=== PATIENT | female | born 1945 | race Caucasian/White ===

== ENCOUNTER 2016-08-03 10:42 | Outpatient (CLI) | payer MEDICARE | END 2016-08-03 10:43 | disposition home or self-care (01) | DX: Z12.31 Encounter for screening mammogram for malignant neoplasm of breast (principal) ==

== ENCOUNTER 2017-01-23 16:17 | Emergency (ER) | payer MEDICARE ==
[2017-01-23] MEDS ORDERED: SODIUM CHLORIDE 0.9% 1,000 ML IV ONE (16:24)
[2017-01-23] MEDS ORDERED: BUFFERED LIDOCAINE 10 ML SYRINGE SUBQ STA (16:25)
[2017-01-23] MEDS ORDERED: TETANUS/DIPHTHERIA/PERTUSSIS 0.5 ML SYRINGE IM ONE ×2 (16:25→16:57)
[2017-01-23] MEDS ORDERED: LORazepam 2 MG/ML SYRINGE IVP STA (16:25)
--- NOTE | 2017-01-23 16:27 | ED Physician Documentation ---
PD HPI SYNCOPE - Stated complaint Stated Complaint: GLF - History obtained from History obtained from: Patient, EMS - History of Present Illness Timing - onset: Other (She had a trip and fall in the garden, she has a couple lacerations on her anterior right leg from where she hit a fence. She went inside and it was bleeding quite profusely. She was sitting there and looking at the wound and paramedics had arrived and that she had a syncopal episode without injury this time. She now feels a little panicky with some tingling of the fingertips.) Review of Systems Constitutional: denies: Fever, Chills, Fatigue Cardiac: denies: Chest pain / pressure, Palpitations Respiratory: denies: Dyspnea, Cough Skin: denies: Rash, Lesions Musculoskeletal: denies: Neck pain, Back pain PD PAST MEDICAL HISTORY - Past Medical History Past Medical History: No - Present Medications Home Medications: Ambulatory Orders Medication Instructions Recorded Confirmed traMADol [Ultram] 50 mg PO Q4-6H PRN #7 tablet 01/23/17 - Allergies Allergies/Adverse Reactions: Allergies Allergy/AdvReac Type Severity Reaction Status Date / Time acetaminophen [From Percocet] AdvReac Nausea Verified 01/23/17 16:32 oxycodone [From Percocet] AdvReac Nausea Verified 01/23/17 16:32 - Family History Family history: reports: Non contributory PD ED PE NORMAL - Vitals Vital signs reviewed: Yes - General General: Alert and oriented X 3, Other (A little panicky and hyperventilating) - HEENT HEENT: PERRL, EOMI - Neck Neck: Supple, no meningeal sign, No bony TTP - Cardiac Cardiac: RRR, No murmur - Respiratory Respiratory: No respiratory distress, Clear bilaterally - Abdomen Abdomen: Soft, Non tender - Derm Derm: Normal color, Warm and dry - Extremities Extremities: Other (Scrapes on the anterior right tib-fib with 2 lacerations, the upper one measuring a centimeter the lower one measuring 2 cm.) - Neuro Neuro: Alert and oriented X 3, Normal speech - Psych Psych: Normal mood, Normal affect Results - Vitals Vitals: Vital Signs - 24 hr 01/23/17 01/23/17 01/23/17 16:22 16:34 17:17 Temperature 35.7 C L Heart Rate 77 85 Respiratory 16 15 Rate Blood Pressure 107/53 L 136/65 H Blood Pressure 111/58 L [Left] Blood Pressure 107/53 L [Right] O2 Saturation 100 100 Oxygen O2 Source Room air - EKG (time done) 1641 Rate: Rate (enter#) (72) Rhythm: NSR Intervals: Prolonged GA QRS: Normal Ischemia: Normal ST segments Computer interpretation: Agree with computer - Labs Labs: Laboratory Tests 01/23/17 01/23/17 16:47 16:47 WBC 10.4 RBC 3.72 L Hgb 11.7 L Hct 34.1 L MCV 91.8 MCH 31.5 H MCHC 34.3 RDW 12.9 Plt Count 419 MPV 7.5 L Neut # 4.7 Lymph # 4.7 H Stephens # 0.7 Eos # 0.2 Baso # 0.0 Absolute Nucleated RBC 0.00 Nucleated RBC % 0.0 Sodium 136 Potassium 3.0 L Chloride 103 Carbon Dioxide 20 L Anion Gap 13.0 BUN 16 Creatinine 0.6 Estimated GFR (MDRD) 99 Glucose 136 H Calcium 9.1 Total Bilirubin 0.4 AST 38 ALT 33 Alkaline Phosphatase 43 Total Protein 8.7 H Albumin 3.9 Globulin 4.8 H Albumin/Globulin Ratio 0.8 L Lipase 44 Procedures - Laceration (location) R paris Length in cm: 3 Wound type: Into subcut fat, Other (1x2 cm lac and 1x1 cm lac). No: Into muscle Tendon involvement: Tendon intact Anesthesia: Lidocaine 1%, With bicarb Wound Preparation: Betadine, Irrigated copiously NS Skin layer closure: Nylon, Interrupted, Size #-0 - enter number (3-0), Sutures - enter # (5) Other: Tetanus booster given Complexity: Simple PD MEDICAL DECISION MAKING - ED course ED course: She had a mechanical fall injuring her leg and then what sounds like vasovagal syncope from looking at the blood. She is very mildly anemic here of unknown chronicity and also hypokalemic which was repleted orally. Given a copy of her labs to follow-up with her doctor. Departure - Departure Disposition: 01 Home, Self Care Clinical Impression: Vasovagal syncope, Hypokalemia Leg laceration Qualifiers: Encounter type: initial encounter Laterality: right Qualified Code(s): S81.811A - Laceration without foreign body, right lower leg, initial encounter Anemia Qualifiers: Anemia type: unspecified type Qualified Code(s): D64.9 - Anemia, unspecified Condition: Good Record reviewed to determine appropriate education?: Yes Instructions: ED Syncope Vasovagal Prescriptions: traMADol [Ultram] 50 mg PO Q4-6H PRN #7 tablet PRN Reason: Pain Comments: Follow-up with PA on for recheck of your anemia and low potassium, also suture removal in 3 weeks. Return for any signs of infection which would include redness, swelling, drainage, increased pain. Your blood pressure was elevated today on check into the emergency department. This does not mean that you have hypertension, it is a common phenomenon to come to the emergency department and have elevated blood pressure. I recommend that you see your primary care physician within the week to have it rechecked when you are feeling better.
[2017-01-23] MEDS ORDERED: BUFFERED LIDOCAINE 10 ML SYRINGE ONE (16:47)
[2017-01-23] MEDS ORDERED: LORazepam 2 MG/ML SYRINGE ONE (16:48)
[2017-01-23 16:55] LABS: BASOPHILS % (AUTO) 0.5 %; EOSINOPHILS # (AUTO) 0.2 10^3/uL (0.0-0.7); EOSINOPHILS % (AUTO) 2.1 %; HCT - HEMATOCRIT 34.1 % (37.0-47.0); HGB - HEMOGLOBIN 11.7 g/dL (12.0-16.0); LYMPHOCYTES # (AUTO) 4.7 10^3/uL (1.5-3.5); MEAN CORPUSCULAR HEMOGLOBIN 31.5 pg (27.0-31.0); MEAN CORPUSCULAR HGB CONC 34.3 g/dL (32.0-36.0); MEAN CORPUSCULAR VOLUME 91.8 fL (81.0-99.0); MEAN PLATELET VOLUME 7.5 fL (7.9-10.8); MONOCYTES # (AUTO) 0.7 10^3/uL (0.0-1.0); NEUTROPHILS # (AUTO) 4.7 10^3/uL (1.5-6.6); NEUTROPHILS % (AUTO) 45.4 %; RED BLOOD COUNT 3.72 10^6/uL (4.20-5.40); RED CELL DISTRIBUTION WIDTH 12.9 % (12.0-15.0); UNCORRECTED WHITE BLOOD COUNT 10.4 x10^3/uL; WHITE BLOOD COUNT 10.4 x10^3/uL (4.8-10.8)
[2017-01-23 17:08] LABS: ALBUMIN/GLOBULIN RATIO 0.8 (1.0-2.2); BILIRUBIN,TOTAL 0.4 mg/dL (0.2-1.0); CALCIUM 9.1 mg/dL (8.5-10.3); CREATININE 0.6 mg/dL (0.4-1.0); TOTAL PROTEIN 8.7 g/dL (6.7-8.2)
[2017-01-23] MEDS ORDERED: POTASSIUM CHLORIDE 20 MEQ TABLET PO STA (17:51)
--- NOTE | 2017-01-23 17:58 | XRAY Preliminary Report ---
Exam: XR TIB/FIB RT IMPRESSION: Normal tibia/fibula radiography. [facility] SITE ID: [id number]
--- NOTE | 2017-01-23 18:00 | XRAY Report ---
EXAM: RIGHT TIBIA/FIBULA RADIOGRAPHY EXAM DATE: 01/23/2017 05:42 PM. CLINICAL HISTORY: Fall. Leg injury. Pain. COMPARISON: None. TECHNIQUE: 2 views. FINDINGS: Bones: Normal. No fracture or bone lesion. Joints: The visualized knee and ankle joints are normal. No effusions. Soft Tissues: Normal. No soft tissue swelling. IMPRESSION: Normal tibia/fibula radiography. [facility] Referring Provider Line: [phone] SITE ID: [id number]
[2017-01-23] MEDS ORDERED: POTASSIUM CHLORIDE 20 MEQ TABLET PO ONE (18:03)
[2017-01-23 18:20] VITALS: BP 129/63
== END 2017-01-23 18:18 | disposition home or self-care (01) ==
LOC: ED 16:17 → EDUNIT# 16:17 → ED 18:18
DX: S81.811A Laceration without foreign body, right lower leg, initial encounter (principal); W01.0XXA Fall on same level from slipping, tripping and stumbling without subsequent striking against object, initial encounter; W22.09XA Striking against other stationary object, initial encounter; Y93.H2 Activity, gardening and landscaping; R55 Syncope and collapse; E87.6 Hypokalemia; R03.0 Elevated blood-pressure reading, without diagnosis of hypertension; R94.31 Abnormal electrocardiogram [ECG] [EKG]; Z23 Encounter for immunization
CPT/HCPCS: 12002; 36415; 73590; 80053; 83690; 85025; 90471; 90715; 93005; 96361; 96374; 99283; 99284; A9270; J2060

== ENCOUNTER 2017-02-15 15:00 | Outpatient (CLI) | payer MEDICARE, OTHER ==
[2017-02-15 19:05] LABS: BASOPHILS % (AUTO) 0.5 %; EOSINOPHILS # (AUTO) 0.2 10^3/uL (0.0-0.7); HCT - HEMATOCRIT 38.6 % (37.0-47.0); HGB - HEMOGLOBIN 12.6 g/dL (12.0-16.0); LYMPHOCYTES # (AUTO) 3.6 10^3/uL (1.5-3.5); LYMPHOCYTES % (AUTO) 42.1 %; MEAN CORPUSCULAR HEMOGLOBIN 31.2 pg (27.0-31.0); MEAN CORPUSCULAR HGB CONC 32.5 g/dL (32.0-36.0); MEAN CORPUSCULAR VOLUME 95.9 fL (81.0-99.0); MONOCYTES # (AUTO) 0.6 10^3/uL (0.0-1.0); MONOCYTES % (AUTO) 6.9 %; NEUTROPHILS # (AUTO) 4.1 10^3/uL (1.5-6.6); NEUTROPHILS % (AUTO) 48.5 %; RED BLOOD COUNT 4.03 10^6/uL (4.20-5.40); RED CELL DISTRIBUTION WIDTH 12.9 % (12.0-15.0); UNCORRECTED WHITE BLOOD COUNT 8.5 x10^3/uL; WHITE BLOOD COUNT 8.5 x10^3/uL (4.8-10.8)
[2017-02-15 19:43] LABS: CALCIUM 9.5 mg/dL (8.5-10.3); CREATININE 0.5 mg/dL (0.4-1.0); POTASSIUM 3.7 mmol/L (3.5-5.0)
== END 2017-02-15 15:01 | disposition home or self-care (01) ==
LOC: LAB.WCP 15:00
PROVIDERS: ATTEND Physician Assistant Medical
DX: E87.6 Hypokalemia (principal); T14.8XXA Other injury of unspecified body region, initial encounter
CPT/HCPCS: 36415; 80048; 85025

== ENCOUNTER 2017-04-01 13:54 | Outpatient (CLI) | payer MEDICARE, OTHER | END 2017-04-01 13:55 | disposition home or self-care (01) | LOC: LAB.R 13:54 | PROVIDERS: ATTEND Obstetrics & Gynecology | DX: N89.8 Other specified noninflammatory disorders of vagina (principal) | CPT/HCPCS: 87480; 87510; 87660 ==

== ENCOUNTER 2017-05-17 12:17 | Emergency (ER) | payer MEDICARE, OTHER ==
[2017-05-17 13:48] VITALS: BP 128/71
--- NOTE | 2017-05-17 14:06 | ED Physician Documentation ---
History of Present Illness - Stated complaint Stated Complaint: RASH ON BACK - Chief complaint Chief Complaint: Wound - Additonal information Additional information: hx from pt stinging itchy rash to back for few days Review of Systems Constitutional: denies: Fever Respiratory: denies: Cough GI: denies: Vomiting Skin: reports: Rash PD PAST MEDICAL HISTORY - Past Medical History Past Medical History: No - Past Surgical History Past Surgical History: Yes Ortho: Carpal Tunnel surgery, Other - Present Medications Home Medications: Ambulatory Orders Medication Instructions Recorded Confirmed Aspirin Chewable [St Tr 05/17/17 Aspirin] Lidocaine 1 applic TP Q8H PRN #30 cream..g. 05/17/17 Multivitamin [Multiple Vitamins] 05/17/17 Valacyclovir HCl [Valtrex] 1,000 mg PO TID #21 tablet 05/17/17 Vit C/E/Zinc/Lutein/Zeaxanthin 05/17/17 [Ocuvite Eye Health Gummies] - Allergies Allergies/Adverse Reactions: Allergies Allergy/AdvReac Type Severity Reaction Status Date / Time acetaminophen [From Percocet] AdvReac Nausea Verified 05/17/17 12:30 oxycodone [From Percocet] AdvReac Nausea Verified 05/17/17 12:30 - Social History Does the pt smoke?: No Smoking Status: Never smoker Does the pt drink ETOH?: No Does the pt have substance abuse?: No - Immunizations Immunizations: TDAP >10years/unknown PD ED PE NORMAL - Vitals Vital signs reviewed: Yes - Cardiac Cardiac: RRR - Respiratory Respiratory: No respiratory distress, Clear bilaterally - Derm Derm: Other (shingle rash posterior right low thoracic back) Results - Vitals Vitals: Vital Signs - 24 hr 05/17/17 05/17/17 12:27 13:47 Temperature 36.7 C 36.7 C Heart Rate 78 70 Respiratory 16 16 Rate Blood Pressure 145/59 H 128/71 O2 Saturation 97 97 Oxygen O2 Source Room air Departure - Departure Disposition: 01 Home, Self Care Clinical Impression: Shingles Qualifiers: Herpes zoster complications: without complications Qualified Code(s): B02.9 - Zoster without complications Condition: Good Instructions: ED Shingles Follow-Up: Amairani Bland PA-C [Primary Care Provider] - Prescriptions: Lidocaine 1 applic TP Q8H PRN #30 cream..g. PRN Reason: pain / itching Valacyclovir HCl [Valtrex] 1,000 mg PO TID #21 tablet
== END 2017-05-17 14:13 | disposition home or self-care (01) ==
LOC: ED 12:17
DX: B02.9 Zoster without complications (principal); Z79.82 Long term (current) use of aspirin
CPT/HCPCS: 99283

== ENCOUNTER 2019-09-25 13:58 | Outpatient (CLI) | payer MEDICARE, OTHER ==
--- NOTE | 2019-09-26 08:26 | Mammography Report ---
BILATERAL DIGITAL SCREENING MAMMOGRAM 3D/2D: 09/25/2019 CLINICAL: Routine screening. Comparison is made to exams dated: 05/14/2014 mammogram, 10/27/2012 mammogram, 08/03/2016 mammogram, and 10/03/2012 mammogram - [facility]. The tissue of both breasts is predominantly fatty . No significant masses, calcifications, or other findings are seen in either breast. There has been no significant interval change. IMPRESSION: NEGATIVE There is no mammographic evidence of malignancy. A 1 year screening mammogram is recommended. This exam was interpreted at Station ID: [id number]. NOTE: For mammograms, a report in lay terms will be sent to the patient. Approximately 15% of breast malignancies will not be visualized mammographically. In the management of a palpable breast mass, a negative mammogram must not discourage biopsy of a clinically suspicious lesion. Electronically Signed By: Teddy Lockwood jr/nnamdi:09/25/2019 16:26:59 ACR BI-RADS Category 1: Negative 3341F PARENCHYMAL PATTERN: (F) - The breast(s) demonstrate(s) diffuse fatty replacement. BI-RADS CATEGORY: (1) - 1 RECOMMENDATION: (ANNUAL) - Recommend routine annual screening mammography. [id number] 1 year screening LATERALITY: (B)
== END 2019-09-25 13:59 | disposition home or self-care (01) ==
LOC: DI 13:58
PROVIDERS: ATTEND Obstetrics & Gynecology
DX: Z12.31 Encounter for screening mammogram for malignant neoplasm of breast (principal); Z13.820 Encounter for screening for osteoporosis; M85.89 Other specified disorders of bone density and structure, multiple sites
CPT/HCPCS: 77063; 77067; 77080

== ENCOUNTER 2019-09-25 14:03 | Outpatient (CLI) | payer MEDICARE, OTHER ==
--- NOTE | 2019-09-25 15:01 | DEXA Report ---
Reason: POST MENOPAUSAL STATUS Procedure Date: 09/25/2019 Accession Number: [id number] / [id number] Procedure: DEX - Dexa Spine and/or Hip CPT Code: Final Report FULL RESULT: PROCEDURE: Dexa Spine and/or Hip INDICATIONS: POST MENOPAUSAL STATUS TECHNIQUE: Dual energy x-ray absorptiometry (DXA) was performed on a Magnasense System. Regions measured are the AP Spine, femoral neck, and if needed forearm. COMPARISON: None. FINDINGS: Lumbar Spine: Bone Mineral Density 0.909 g/cm/cm,T score -2.3, Left Femoral Neck: Bone Mineral Density 0.735 g/cm/cm, T score -2.2, (T score greater or equal to -1.0: NORMAL) (T score from -1.1 to -2.4: OSTEOPENIA) (T score less than or equal to -2.5 to: OSTEOPOROSIS) Impression: Osteopenia. Patients with diagnosis of osteoporosis or osteopenia should have regular bone mineral density assessment. For those eligible for Medicare, routine testing is allowed once every 2 years. Testing frequency can be increased for patients who have rapidly progressing disease or for those who are receiving medical therapy to restore bone mass. Reviewed by: Blas Robbins MD on 09/25/2019 2:59 PM PDT Approved by: Blas Robbins MD on 09/25/2019 2:59 PM PDT Station ID: [id number]
== END 2019-09-25 14:04 | disposition home or self-care (01) ==
LOC: DI 14:03
PROVIDERS: ATTEND Obstetrics & Gynecology
DX: Z13.820 Encounter for screening for osteoporosis (principal); M85.89 Other specified disorders of bone density and structure, multiple sites
CPT/HCPCS: 77080

== ENCOUNTER 2020-11-26 10:28 | Outpatient (CLI) | payer MEDICARE, OTHER ==
--- NOTE | 2020-11-27 12:13 | Mammography Report ---
BILATERAL DIGITAL SCREENING MAMMOGRAM 3D/2D: 11/26/2020 CLINICAL: Routine screening. Comparison is made to exams dated: 09/25/2019 mammogram, 08/03/2016 mammogram, 05/14/2014 mammogram, 10/27 mammogram, and 10/03/2012 mammogram - [facility]. The tissue of both breasts i s heterogeneously dense. This may lower the sensitivity of mammography. No significant masses, calcifications, or other findings are seen in either breast. There has been no significant interval change. IMPRESSION: NEGATIVE There is no mammographic evidence of malignancy. A 1 year screening mammogram is recommended. This exam was interpreted at Station ID: [id number]. NOTE: For mammograms, a report in lay terms will be sent to the patient. Approximately 15% of breast malignancies will not be visualized mammographically. In the management of a palpable breast mass, a negative mammogram must not discourage biopsy of a clinically suspicious lesion. Electronically Signed By: Erich Castellanos M.D. atelena/nnamdi:11/26/2020 11:22:14 ACR BI-RADS Category 1: Negative 3341F PARENCHYMAL PATTERN: (D) - The breast(s) demonstrate(s) heterogeneously dense fibroglandular [place] ma. BI-RADS CATEGORY: (1) - 1 RECOMMENDATION: (ANNUAL) - Recommend routine annual screening mammography. [id number] 1 year screening LATERALITY: (B)
== END 2020-11-26 10:29 | disposition home or self-care (01) ==
LOC: DI.N 10:28
DX: Z12.31 Encounter for screening mammogram for malignant neoplasm of breast (principal)

== ENCOUNTER 2021-02-27 08:00 | Outpatient (CLI) | payer OTHER ==
[2021-02-27 18:55] LABS: ALBUMIN 4.3 g/dL (3.2-5.5); ALBUMIN/GLOBULIN RATIO 0.8 (1.0-2.2); ALKALINE PHOSPHATASE 51 IU/L (42-121); ALT ALANINE AMINOTRANSFERASE 23 IU/L (10-60); AST ASPARTATE AMINOTRANSFERASE 28 IU/L (10-42); BILIRUBIN,TOTAL 0.8 mg/dL (0.2-1.0); BUN - BLOOD UREA NITROGEN 15 mg/dL (6-20); CALCIUM 9.5 mg/dL (8.5-10.3); CARBON DIOXIDE - CO2 28 mmol/L (21-32); CHLORIDE 99 mmol/L (101-111); CHOL/HDL RATIO 4.5 (<4.4); CHOLESTEROL 219 mg/dL; CREATININE 0.5 mg/dL (0.4-1.0); GFR - MDRD 121 (>89); GLUCOSE 95 mg/dL (70-100); HDL CHOLESTEROL 49 mg/dL; LDL CHOLESTEROL,CALCULATED 145 mg/dL; POTASSIUM 3.8 mmol/L (3.5-5.0); SODIUM 136 mmol/L (135-145); TOTAL PROTEIN 9.7 g/dL (6.7-8.2); TRIGLYCERIDES 123 mg/dL; VLDL CHOLESTEROL 25 mg/dL
== END 2021-02-27 23:59 | disposition home or self-care (01) ==
LOC: LAB.WCP 08:00
PROVIDERS: ATTEND Physician Assistant Medical
DX: E78.5 Hyperlipidemia, unspecified (principal)
CPT/HCPCS: 36415; 80053; 80061; 83721

== ENCOUNTER 2022-07-28 12:27 | Outpatient (CLI) | payer MEDICARE, OTHER ==
--- NOTE | 2022-07-28 13:13 | XRAY Report ---
PROCEDURE: Chest 2 View X-Ray INDICATIONS: PNEUMONIA TECHNIQUE: 2 views of the chest were acquired. COMPARISON: None. FINDINGS: Surgical changes and devices: None. Lungs and pleura: No pleural effusions or pneumothorax. Lungs are clear. Mediastinum: Mediastinal contours appear normal. Heart size is normal. Bones and chest wall: No suspicious bony lesions. Overlying soft tissues appear unremarkable. IMPRESSION: No acute cardiopulmonary process. Reviewed by: Tres Cohen on 07/28/2022 1:11 PM PDT Approved by: Tres Cohen on 07/28/2022 1:11 PM PDT Station ID: [id number]
== END 2022-07-28 12:28 | disposition home or self-care (01) ==
LOC: DI 12:27
PROVIDERS: ATTEND Physician Assistant Medical
DX: J18.9 Pneumonia, unspecified organism (principal)

== ENCOUNTER 2022-11-19 09:27 | Emergency (ER) | payer MEDICARE ==
--- NOTE | 2022-11-19 10:12 | XRAY Report ---
PROCEDURE: Knee 4 View LT INDICATIONS: Trauma TECHNIQUE: 4 views of the left knee(s) were acquired. COMPARISON: None. FINDINGS: Bones: No acute fractures or dislocations. No suspicious bony lesions. Soft tissues: Very small knee joint effusion. No suspicious soft tissue calcifications or masses. IMPRESSION: No acute bony abnormality. There is small suprapatellar joint effusion. If there is persistent clinical concern for a radiographically occult fracture, recommend immobilizat ion and repeat imaging in 10 to 14 days. Reviewed by: Erich Castellanos MD on 11/19/2022 10:11 AM PDT Approved by: Erich Castellanos MD on 11/19/2022 10:11 AM PDT Station ID: [id number]
[2022-11-19] MEDS ORDERED: IBUPROFEN 600 MG TABLET PO STA (10:57)
[2022-11-19] MEDS ORDERED: ACETAMINOPHEN 325 MG TABLET PO STA (10:57)
--- NOTE | 2022-11-19 11:26 | ED Physician Documentation ---
PD HPI LOWER EXT INJURY - Stated complaint Stated Complaint: LT KNEE PX - Chief complaint Chief Complaint: Ext Problem - History obtained from History obtained from: Patient - Additional information Additional information: The patient comes to the emergency department with chief complaint of left knee pain that started yesterday and then got worse today after an injury at work. The patient states that she was working out in her yard for about 15 minutes, trimming some bushes yesterday, and afterward came in and propped her feet up on the coffee table. She began to notice increasing discomfort in her left foot and her left knee, but did not think much of it. She states she did not have any swelling or calf pain or tenderness. The patient states that overnight, she noticed little bit of worsening of the pain and that today at work, she stepped into her office and suddenly felt a small pop and a pain in the back of her left knee. No swelling or bruising. The patient states that it hurts to walk on that extremity, especially behind the knee. No other complaints at this time. PD PAST MEDICAL HISTORY - Past Surgical History Past Surgical History: Yes Ortho: Carpal Tunnel surgery, Other - Present Medications Home Medications: Ambulatory Orders Medication Instructions Recorded Confirmed Aspirin Chewable [St Tr 05/17/17 Aspirin] Lidocaine 1 applic TP Q8H PRN #30 cream..g. 05/17/17 Multivitamin [Multiple Vitamins] 05/17/17 Valacyclovir HCl [Valtrex] 1,000 mg PO TID #21 tablet 05/17/17 Vit C/E/Zinc/Lutein/Zeaxanthin 05/17/17 [Ocuvite Eye Health Gummies] - Allergies Allergies/Adverse Reactions: Allergies Allergy/AdvReac Type Severity Reaction Status Date / Time acetaminophen [From Percocet] AdvReac Nausea Verified 05/17/17 12:30 oxycodone [From Percocet] AdvReac Nausea Verified 05/17/17 12:30 - Social History Does the pt smoke?: No Smoking Status: Never smoker Does the pt drink ETOH?: No Does the pt have substance abuse?: No - Immunizations Immunizations: TDAP >10years/unknown Results - Vitals Vitals: Oxygen O2 Source Room air - Rads (name of study) Left knee x-ray Relevant Findings:: Final report received, See rad report (No acute findings) PD Medical Decision Making - ED course Complexity details: reviewed results, re-evaluated patient, considered differential, d/w patient ED course: X-ray was performed of the knee and found to be unremarkable. I discussed that this is likely a soft tissue injury which will heal on its own, given time. We have discussed the patient may follow-up for MRI if she does not notice any improvement in her symptoms in the next couple of weeks. We have discussed symptomatic management at home and the usual indications for return. Departure - Departure Disposition: 01 Home, Self Care Clinical Impression: Knee sprain Qualifiers: Encounter type: initial encounter Involved ligament of knee: unspecified ligament Laterality: left Qualified Code(s): S83.92XA - Sprain of unspecified site of left knee, initial encounter Condition: Stable Instructions: ED Sprain Knee Comments: Your injury and symptoms are consistent with a sprain or strain of the soft tissues of your knee. This could be a minor sprain involving one of the ligaments or it could be a strain involving the tissues of the muscle and tendon. Either way, there is no evidence of a fracture, either on x-ray or by the history of the type of injury you have had. You may use the Jeevan wrap or obtain a neoprene sleeve [id number] for your knee to help provide some extra support. You may also use the crutches that we have provided here to help unburden your leg. You may bear weight as much as is tolerable to your knee, a nd the crutches can assist with with lightening your step on that side. However, if you feel that you cannot tolerate bearing any weight at all, then you may simply use the crutches to "step" instead of using your left leg. Once you are feeling well enough to go without the wrap and crutches, you may. You may also use ice and ibuprofen and/or Tylenol to help with managing the symptoms at home. Propping your leg up whenever you are sitting or laying down is also helpful. Please follow-up with your primary care physician for further concerns, or if you feel there is minimal improvement after the next few weeks. Forms: PCP List Discharge Date/Time: 11/19/22 11:37
[2022-11-19 11:39] VITALS: BP 122/61; O2SAT 99
== END 2022-11-19 11:37 | disposition home or self-care (01) ==
LOC: ED 09:27
DX: S83.92XA Sprain of unspecified site of left knee, initial encounter (principal); X50.1XXA Overexertion from prolonged static or awkward postures, initial encounter; M79.672 Pain in left foot; X58.XXXA Exposure to other specified factors, initial encounter; Y93.H2 Activity, gardening and landscaping; Y92.096 Garden or yard of other non-institutional residence as the place of occurrence of the external cause; Z79.82 Long term (current) use of aspirin
CPT/HCPCS: 73564; 99283; A9270

== ENCOUNTER 2022-12-18 22:44 | Emergency (ER) | payer MEDICARE ==
--- NOTE | 2022-12-19 00:18 | ED Physician Documentation ---
History of Present Illness - Stated complaint Stated Complaint: ABNORMAL LABWORK - Chief complaint Chief Complaint: General - Additonal information Additional information: HPI from patient. Patient says she was contacted this evening by someone from [facility] informing her of positive blood cultures drawn yesterday, advised to come back to ED. Patient was T+R from this ED yesterday for abdominal pain with n/v. CT A/P showed 5mmg right UVJ calculus with right hydroureter/hydronephrosis. UA showed hematuria but no evidence of UTI. 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 Patient says she did not fill the rx because it was too expensive. She also was prescribed tamsulosin but pharmacy was out of this medication. She was prescribes percocet but this was changed to vicodin due to allergy to oxycodone; patient says when she went to [facility], pharmacist said the vicodin rx was cancelled. Patient says she has not had any more pain, nausea/vomiting since being discharged from ED yesterday. Denies fever. She says she feels well and is only here due to recommendation to return (due to positive blood cultures). Blood cultures drawn yesterday show 1 of 2 bottles growing staphylococcus epidermidis (2nd blood culture result is pending). Review of Systems Constitutional: reports: Reviewed and negative Cardiac: reports: Reviewed and negative Respiratory: reports: Reviewed and negative GI: reports: Abdominal Pain (yesterday but has not reoccurred since d/c from ED), Vomiting (resolved since d/c from ED yesterday) : denies: Dysuria, Frequency, Hematuria PD PAST MEDICAL HISTORY - Past Medical History Past Medical History: Yes - Past Surgical History Past Surgical History: Yes Ortho: Carpal Tunnel surgery, Other - Present Medications Home Medications: Ambulatory Orders Medication Instructions Recorded Confirmed Multivitamin [Multiple Vitamins] 1 tab PO DAILY 05/17/17 12/19/22 Vit C/E/Zinc/Lutein/Zeaxanthin 1 tab PO DAILY 05/17/17 12/19/22 [[employer] Gummies] Ondansetron Odt [Zofran Odt] 4 mg TL Q6H PRN #10 tablet 09/22/23 09/23/23 Tamsulosin [Flomax] 0.4 mg PO DAILY 14 Days #14 tab 12/18/22 12/19/22 levoFLOXacin [Levofloxacin] 500 mg PO DAILY #7 tablet 12/19/22 - Allergies Allergies/Adverse Reactions: Allergies Allergy/AdvReac Type Severity Reaction Status Date / Time acetaminophen [From Percocet] AdvReac Nausea Verified 12/18/22 22:50 oxycodone [From Percocet] AdvReac Nausea Verified 12/18/22 22:50 - Social History Does the pt smoke?: No Smoking Status: Never smoker Does the pt drink ETOH?: No Does the pt have substance abuse?: No - Immunizations Immunizations: TDAP >10years/unknown PD ED PE NORMAL - Vitals Vital signs reviewed: Yes - General General: Alert and oriented X 3, No acute distress, Well developed/nourished - Cardiac Cardiac: RRR, No murmur - Respiratory Respiratory: No respiratory distress, Clear bilaterally - Abdomen Abdomen: Soft, Non tender - Back Back: No CVA TTP Results - Vitals Vitals: Oxygen O2 Source Room air - Labs Labs: Microbiology 12/19/22 01:14 Blood Culture - Preliminary Blood - Left Arm NO GROWTH AFTER 2 DAYS 12/19/22 01:24 Blood Culture - Preliminary Blood - Right Arm NO GROWTH AFTER 2 DAYS 12/19/22 02:04 Urine Culture - Final Urine,Random LESS THAN 10,000 COLONIES/ML polymicrobial growth including potential pathogens. This is suggestive of skin or other contamination. Laboratory Tests 12/19/22 12/19/22 12/19/22 01:24 01:24 02:04 WBC 20.4 H RBC 3.47 L Hgb 10.5 L Hct 32.4 L MCV 93.4 MCH 30.3 MCHC 32.4 RDW 14.6 Plt Count 456 H MPV 9.3 Neut # (Auto) 16.5 H Lymph # (Auto) 2.4 [place] # (Auto) 1.3 H Eos # (Auto) 0.0 Baso # (Auto) 0.1 Absolute Nucleated RBC 0.00 Band Neuts % (Manual) Not Reportable Abnorm Lymph % (Manual) Not Reportable Nucleated RBC % 0.0 Neutrophils # (Manual) Not Reportable Lymphocytes # (Manual) Not Reportable Monocytes # (Manual) Not Reportable Eosinophils # (Manual) Not Reportable Basophils # (Manual) Not Reportable Differential Comment MANUAL=AUTO DIFF Manual Slide Review Indicated Platelet Estimate INCREASED (>450,000) Platelet Morphology NORMAL APPEARANCE RBC Morph Micro Appear NORMAL APPEARANCE Sodium 132 L Potassium 3.2 L Chloride 100 L Carbon Dioxide 24 Anion Gap 8.0 BUN 29 H Creatinine 0.9 Estimated GFR (MDRD) 61 L Glucose 107 H Lactic Acid Calcium 9.3 Urine Color YELLOW Urine Clarity HAZY Urine pH 5.5 Ur Specific [place] 1.020 Urine Protein 100 H Urine Glucose (UA) NEGATIVE Urine Ketones NEGATIVE Urine Occult Blood LARGE H Urine Nitrite NEGATIVE Urine Bilirubin NEGATIVE Urine Urobilinogen 0.2 (NORMAL) Ur Leukocyte Esterase MODERATE H Urine RBC TNTC H Urine WBC >25 H Ur Squamous Epith Cells RARE Squamous Urine Bacteria Few Ur Microscopic Review INDICATED Urine Culture Comments INDICATED 12/19/22 03:06 WBC RBC Hgb Hct MCV MCH MCHC RDW Plt Count MPV Neut # (Auto) Lymph # (Auto) [place] # (Auto) Eos # (Auto) Baso # (Auto) Absolute Nucleated RBC Band Neuts % (Manual) Abnorm Lymph % (Manual) Nucleated RBC % Neutrophils # (Manual) Lymphocytes # (Manual) Monocytes # (Manual) Eosinophils # (Manual) Basophils # (Manual) Differential Comment Manual Slide Review Platelet Estimate Platelet Morphology RBC Morph Micro Appear Sodium Potassium Chloride Carbon Dioxide Anion Gap BUN Creatinine Estimated GFR (MDRD) Glucose Lactic Acid 1.7 Calcium Urine Color Urine Clarity Urine pH Ur Specific [place] Urine Protein Urine Glucose (UA) Urine Ketones Urine Occult Blood Urine Nitrite Urine Bilirubin Urine Urobilinogen Ur Leukocyte Esterase Urine RBC Urine WBC Ur Squamous Epith Cells Urine Bacteria Ur Microscopic Review Urine Culture Comments - Rads (name of study) CT A/P with IV contrast Relevant Findings:: Prelim report reviewed, See rad report PD Medical Decision Making - ED course Complexity details: reviewed old records, reviewed results, re-evaluated patient, considered differential, d/w patient ED course: During ED evaluation tonight the second blood culture from yesterday is reported by lab as positive for gram positive cocci in clusters. WBC is same tonight as yesterday (20.4). UA tonight with TNTC RBC, >25 wbc/hpf. Given no improvement in WBC and UA now s/o UTI (compared to just hematuria on yesterday's urinalysis), repeat CT A/P undertaken; CT shows near-resolution of right hydroureter/hydronephrosis and no evidence of ureterolithiasis. Repeat blood cultures are drawn. Patient is asymptomatic throughout long ED stay. She is given 500mg IV levofloxacin in ED and I provided rx for one-week course of levofloxacin. Return precautions were carefully reviewed with patient. Departure - Departure Disposition: 01 Home, Self Care Clinical Impression: Urinary tract infection Qualifiers: Urinary tract infection type: acute cystitis Hematuria presence: with hematuria Qualified Code(s): N30.01 - Acute cystitis with hematuria Condition: Good Instructions: ED UTI Cystitis Female Follow-Up: Amairani Bland PA-C [Primary Care Provider] - Within 3 Days Prescriptions: levoFLOXacin [Levofloxacin] 500 mg PO DAILY #7 tablet Comments: The CT scan of your abdomen shows that you have passed the kidney stone. The urinalysis is suggestive of a urinary tract infection. Your white blood cell count remains quite elevated. You were given the first dose of an antibiotic (levofloxacin) in the ER and I have electronically submitted a prescription for a one week course of this antibiotic to the [facility] pharmacy in [place]. You will be called if your repeat blood cultures are positive. Even if the cultures are negative, it is very important to follow up with your primary care provider for reevaluation as soon as can be arranged. Forms: PCP List Discharge Date/Time: 12/19/22 08:43
[2022-12-19 01:32] LABS: BASOPHILS # (AUTO) 0.1 10^3/uL (0.0-0.1); BASOPHILS % (AUTO) 0.3 %; EOSINOPHILS % (AUTO) 0.1 %; HCT - HEMATOCRIT 32.4 % (37.0-47.0); HGB - HEMOGLOBIN 10.5 g/dL (12.0-16.0); LYMPHOCYTES # (AUTO) 2.4 10^3/uL (1.5-3.5); LYMPHOCYTES % (AUTO) 11.9 %; MEAN CORPUSCULAR HEMOGLOBIN 30.3 pg (27.0-31.0); MEAN CORPUSCULAR HGB CONC 32.4 g/dL (32.0-36.0); MEAN CORPUSCULAR VOLUME 93.4 fL (81.0-99.0); MEAN PLATELET VOLUME 9.3 fL (7.9-10.8); MONOCYTES # (AUTO) 1.3 10^3/uL (0.0-1.0); MONOCYTES % (AUTO) 6.1 %; NEUTROPHILS # (AUTO) 16.5 10^3/uL (1.5-6.6); NEUTROPHILS % (AUTO) 81.1 %; PLT - PLATELET COUNT 456 10^3/uL (130-450); RED BLOOD COUNT 3.47 10^6/uL (4.20-5.40); RED CELL DISTRIBUTION WIDTH 14.6 % (12.0-15.0); WHITE BLOOD COUNT 20.4 x10^3/uL (4.8-10.8)
[2022-12-19 01:36] LABS: SLIDE REVIEW? Indicated
[2022-12-19 01:53] LABS: DIFFERENTIAL COMMENT MANUAL=AUTO DIFF; PLATELET ESTIMATE, MANUAL INCREASED (>450,000) (NORMAL); PLATELET MORPHOLOGY NORMAL APPEARANCE (NORMAL); RBC MORPHOLOGY (MULTIPLE) NORMAL APPEARANCE (NORMAL)
[2022-12-19 02:18] LABS: BILIRUBIN,URINE NEGATIVE (NEGATIVE); GLUCOSE, URINE (UA) NEGATIVE (NEGATIVE); KETONES,URINE (UA) NEGATIVE (NEGATIVE); LEUKOCYTE ESTERASE, URINE MODERATE (NEGATIVE); NITRITE,URINE NEGATIVE (NEGATIVE); OCCULT BLOOD,URINE LARGE (NEGATIVE); PH,URINE 5.5 PH (5.0-7.5); PROTEIN,URINE 100 mg/dL (NEGATIVE); UROBILINOGEN,URINE 0.2 (NORMAL) E.U./dL (NORMAL)
[2022-12-19 02:28] LABS: CLARITY,URINE HAZY (CLEAR)
[2022-12-19 02:29] LABS: BACTERIA,URINE Few /HPF (None Seen); RBC,URINE TNTC /HPF (0-5); SQUAMOUS EPITHELIAL CELL,UR RARE Squamous (<= Few); WBC,URINE >25 /HPF (0-5)
[2022-12-19 03:21] LABS: CALCIUM 9.3 mg/dL (8.5-10.3); CREATININE 0.9 mg/dL (0.6-1.3); POTASSIUM 3.2 mmol/L (3.5-4.5)
[2022-12-19] MEDS ORDERED: levoFLOXacin 500 MG/100 ML 500 MG/100 ML BAG IV STA (03:48)
[2022-12-19 05:11] VITALS: O2SAT 93
[2022-12-19] MEDS ORDERED: ACETAMINOPHEN 500 MG TABLET PO STA (05:54)
[2022-12-19] MEDS ORDERED: iohexoL-300 100 ML VIAL IVP ONE (06:08)
[2022-12-19 07:25] VITALS: BP 111/57
--- NOTE | 2022-12-19 08:03 | CT Report ---
PROCEDURE: ABDOMEN/PELVIS W INDICATIONS: leukocytosis, UTI, ureterolithiasis on recent CT CONTRAST: 100 ml omni 300 TECHNIQUE: After the administration of IV contrast, 5 mm thick sections acquired from the diaphragms to the symp hysis. 5 mm thick coronal and sagittal reformats were acquired. For radiation dose reduction, the f ollowing was used: automated exposure control, adjustment of mA and/or kV according to patient size. COMPARISON: 12/17/2022 FINDINGS: Image quality: Good Lower chest: Bibasilar atelectasis. No pleural effusions. Partially seen hiatal hernia. This is moder ate in size. There are coronary calcifications. Solid organs: Liver is unremarkable. Gallstones versus contrast excretion, gallbladder is nondistende d. No pathologic biliary ductal dilation or pancreatic ductal dilation. No splenomegaly. No adrenal n odules. No hydronephrosis on the left. The right hydronephrosis has decreased. Persistent perinephric and periureteral fat stranding is seen. The UVJ stone appears to been passed. However, there is pers istent urothelial thickening. A few punctate calculi are seen in the lower pole the right kidney, nonobstructing. Vessels and lymph nodes: The main portal vein appears patent. No abdominal aortic aneurysm or patholo gic lymph nodes by size criteria. Bowel and peritoneum: No evidence of small bowel obstruction. No pathologic ascites. No drainable abs cess. Body wall: Unremarkable Pelvis: The bladder appears low lying. Hysterectomy. Possible pelvic floor laxity. Bones: Degenerative changes. No acute or suspicious osseous finding. IMPRESSION: Interval passage of the right UVJ stone with slightly decreased hydronephrosis on the right. Right re nal edema, urothelial fat stranding and enhancement persists, correlate with urinalysis. Suspected pelvic floor laxity. Suspected low-lying bladder. Other findings as above. No significant discrepancy from the preliminary report. Reviewed by: Stew Tompkins MD on 12/19/2022 8:02 AM PDT Approved by: Stew Tompkins MD on 12/19/2022 8:02 AM PDT Station ID: [id number]
== END 2022-12-19 08:43 | disposition home or self-care (01) ==
LOC: ED 22:44
DX: N30.01 Acute cystitis with hematuria (principal); D72.829 Elevated white blood cell count, unspecified; Z88.5 Allergy status to narcotic agent; N13.2 Hydronephrosis with renal and ureteral calculous obstruction
CPT/HCPCS: 36415; 74177; 80048; 80053; 81001; 83605; 83690; 85025; 87040; 87077; 87086; 87150; 87181; 96361; 96365; 96366; 96375; 99283; 99284; A9270; J2765; Q0162; Q9967; 81003

== ENCOUNTER 2024-08-18 18:07 | Inpatient (IN) ==
--- OUTSIDE RECORDS SUMMARY | 2024-08-18 18:18 | EXTERNAL MEDICAL SUMMARY RPT | Continuity of Care Document ---
Author Organization [facility] Address [address] [place] [id number] Phone Problems date description facility 2024-05-22 16:33 Pain in thoracic spine [facility] 2024-05-22 16:33 Right upper quadrant pain [facility] 2024-05-22 16:33 Nausea [facility] 2024-05-22 16:33 Nausea with vomiting, unspecifi ed [facility] 2024-05-22 16:[address], [address] [facility]24-[facility]-22 16:33 Dizziness and giddiness [facility] Social History date description facility
--- NOTE | 2024-08-18 18:22 | ED Physician Documentation ---
History of Present Illness Stated complaint Stated Complaint: NAUSEA, VOMITING, DIARRHEA Chief complaint Chief Complaint: Abd Pain History obtained from History obtained from: Patient and EMS Additonal information Additional information: This is an otherwise healthy 79-year-old woman who presents by ambulance. She is been feeling nauseous for about 3 days. She had a cough last week which is better and she has abdominal pain that she thinks is from residual soreness from the coughing. She is also had diarrhea. She was noted to be febrile by paramedics en route who gave her Zofran. She has not yet had any for IV fluids. She denies blood from either end. Has not actually been vomiting just very nauseous. Meds/Allgy Home Medications Ambulatory Orders Medication Instructions Recorded Confirmed multivitamin (Multiple Vitamins 1 tab PO DAILY 8 08/18/24 tablet) vit C 50 mg-E 15 unit-zinc cit 4.5 1 tab PO DAILY 04/2908/18/24 mg-lutein 2.5 mg-zeaxan chew tablet ([employer]) Allergies Allergies Allergy/AdvReac Type Severity Reaction Status Date / Time acetaminophen (From Percocet) AdvReac Nausea Verified 08/18/24 18:15 oxycodone (From Percocet) AdvReac Nausea Verified 08/18/24 18:15 PFSH Active Problems All Active Problems (Updated 08/18/24 @ 20:16 by Gee Briggs MD) Sepsis (Acute) Pneumonia (Acute) Abdominal pain (Acute) Medical History Medical History (Updated 08/18/24 @ 20:16 by Gee Briggs MD) No pertinent past medical history Surgical History Surgical History (Updated 05/05/24 @ 12:51 by Ashlie Sharma, RN, BSN) No pertinent past surgical history Social History Social History Smoking Status: Never smoker Relationship: Do you feel safe in your home environment?: Yes Suffered physical, verbal, emotional, or financial abuse?: No History of Abuse: No POLST Patient has POLST: No Exam Exam Vital Signs: Vital Signs x48h Temp Pulse Resp BP Pulse Ox O2 Flow Rate 08/18/24 20:09 105 H 18 104/51 L 96 4 08/18/24 18:10 38.3 C H 113 H 20 126/65 93 Febrile and tachycardic. Well-appearing with dry mucous membranes though. She is tender in the low abdomen without surgical signs and has hyperactive bowel sounds. Mild resting tachycardia but regular without murmur. Clear lungs without respiratory distress. GCS 15. Results Vitals Vitals: Vital Signs - 24 hr 08/18/24 18:10 08/18/24 18:17 08/18/24 18:51 Temperature 38.3 C H Temperature Source Oral Pulse Rate 113 H Respiratory Rate 20 Blood Pressure 126/65 O2 Saturation 93 Oxygen Delivery Method O2 Source Room air Oxygen Flow Rate If not protocol: Oxygen Flow, liters/minute Pain Intensity 0 0 6 08/18/24 18:59 08/18/24 20:09 08/18/24 20:25 Temperature Temperature Source Pulse Rate 105 H Respiratory Rate 18 Blood Pressure 104/51 L O2 Saturation 96 Oxygen Delivery Method Nasal Cannula O2 Source Nasal cannula Oxygen Flow Rate 2 If not protocol: Oxygen Flow, liters/minute 4 Pain Intensity 0 0 Oxygen O2 Source Nasal cannula Oxygen Flow Rate 2 Labs Labs: Laboratory Tests 08/18/24 08/18/24 18:32 18:32 WBC 24.9 H RBC 3.37 L Hgb 10.2 L Hct 31.2 L MCV 92.6 MCH 30.3 MCHC 32.7 RDW 17.5 H Plt Count 426 MPV 9.6 Neut # (Auto) Not Reportable Lymph # (Auto) Not Reportable [place] # (Auto) Not Reportable Eos # (Auto) Not Reportable Baso # (Auto) Not Reportable Absolute Nucleated RBC Not Reportable Total Counted 100 Band Neuts % (Manual) 18 H Reactive Lymphs % (Man) 1 Abnorm Lymph % (Manual) 0 Metamyelocytes % 1 H Nucleated RBC % Not Reportable Neutrophils # (Manual) 21.9 H Lymphocytes # (Manual) 1.5 Monocytes # (Manual) 1.0 Eosinophils # (Manual) 0.2 Basophils # (Manual) 0.0 Differential Comment MANUAL DIFFERENTIAL Platelet Estimate NORMAL (130-450,000) Platelet Morphology NORMAL APPEARANCE RBC Morph Micro Appear 1+ ANISOCYTOSIS 2+ POIKILOCYTOSIS Sodium 129 L Potassium 3.1 L Chloride 95 L Carbon Dioxide 23 Anion Gap 11.0 BUN 28 H Creatinine 0.7 Estimated GFR (MDRD) 81 L Glucose 138 H Lactic Acid 3.9 H* Calcium 9.4 Total Bilirubin 1.0 AST 29 ALT 16 Alkaline Phosphatase 34 L Total Protein 9.8 H Albumin 3.5 Globulin 6.3 H Albumin/Globulin Ratio 0.6 L Lipase < 10 L Rads (name of study) 1V CXR- RML PNA: Relevant Findings:: Final report received and EMP independent interpretation of test (RML PNA) CT Chest: Relevant Findings:: Final report received and EMP independent interpretation of test (RML PNA) Interpretation: Right upper lobe pneumonia, without aggressive features. Recommend repeat CT in 2-3 months to ensure resolution. Reactive mediastinal lymph nodes. Large hiatal hernia. Other ancillary findings as above. PD Medical Decision Making ED course ED course: 79-year-old woman with nausea, abdominal pain, diarrhea, fever. She does appear dehydrated clinically and is tachycardic. Sepsis time of onset at 7 PM with results of lactate and white count 24,000. Second liter of crystalloid and Zosyn ordered for likely intra-abdominal source. She received 2 L of normal saline which was greater than 30 mL/kg. Subsequently saw her chest x-ray showing large right middle lobe pneumonia and added azithromycin to her antibiotic regimen. She received both oral and IV potassium supplementation for a potassium level of 3.1. Abdominal imaging not showing any primary abdominal pathology necessitating urgent intervention. Spoke with [facility] for admission at 8:30 PM. The patient and family are counseled as to the diagnosis and need for admission. This document was made in part using voice recognition software, while efforts are made to proofread this document, sound alike an grammatical errors may occur. Critical Care Time(min): 37 Time Includes: Direct patient care, Review records, Reassess patient, Document care, Coordinate care, Medical consult and See progress note (Reevaluations after multiple fluid boluses) Data interpretation: Labs Sepsis Event Sepsis Onset Date: 08/18/24 Sepsis Onset Time: 19:00 Current Stage of Sepsis: Septic shock Possible source of Sepsis: Pulmonary, GI tract/intra-abdominal and Genitourinary Mental/Cognitive Status: Alert/Oriented X3 Capillary refill: Less than 2 seconds Peripheral Pulse Strength: 3+ Normal Peripheral Pulse Location: Radial Discharge Plan Discharge Patient Disposition: 66 [facility] DC/Xfer Condition: Serious Clinical Impression: Abdominal pain Qualifiers: Abdominal location: generalized Qualified Code(s): R10.84 - Generalized abdominal pain Pneumonia Qualifiers: Pneumonia type: due to unspecified organism Laterality: right Lung location: middle lobe of lung Qualified Code(s): J18.9 - Pneumonia, unspecified organism Sepsis Qualifiers: Sepsis type: sepsis due to unspecified organism Sepsis acute organ dysfunction status: with acute organ dysfunction Severe sepsis acute organ dysfunction type: unspecified Prescriptions: No Action multivitamin [Multiple Vitamins] 1 EACH tablet 1 tab PO DAILY [facility] 1 EACH tablet,chewable 1 tab PO DAILY Print Language: [place]
[2024-08-18] MEDS: SODIUM CHLORIDE 0.9% 1,000 ML IV STA ×2 (18:37→18:38)
[2024-08-18 18:44] LABS: BASOPHILS % (AUTO) 0.5 %; EOSINOPHILS % (AUTO) 0.8 %; HCT - HEMATOCRIT 31.2 % (37.0-47.0); HGB - HEMOGLOBIN 10.2 g/dL (12.0-16.0); LYMPHOCYTES % (AUTO) 4.3 %; MEAN CORPUSCULAR HEMOGLOBIN 30.3 pg (27.0-31.0); MEAN CORPUSCULAR HGB CONC 32.7 g/dL (32.0-36.0); MEAN CORPUSCULAR VOLUME 92.6 fL (81.0-99.0); MEAN PLATELET VOLUME 9.6 fL (7.9-10.8); MONOCYTES % (AUTO) 2.9 %; NEUTROPHILS % (AUTO) 86.2 %; PLT - PLATELET COUNT 426 10^3/uL (130-450); RED BLOOD COUNT 3.37 10^6/uL (4.20-5.40); RED CELL DISTRIBUTION WIDTH 17.5 % (12.0-15.0); WHITE BLOOD COUNT 24.9 x10^3/uL (4.8-10.8)
[2024-08-18] MEDS: HYDROmorphone 1 MG/ML CARPUJECT IVP STA (18:51)
[2024-08-18] MEDS: METOCLOPRAMIDE 10 MG/2 ML VIAL IVP STA (18:51)
[2024-08-18 18:55] LABS: ABNORMAL LYMPHS % (MANUAL) 0 %
[2024-08-18 18:56] LABS: ALBUMIN 3.5 g/dL (3.2-5.5); ALBUMIN/GLOBULIN RATIO 0.6 (1.0-2.2); ALKALINE PHOSPHATASE 34 IU/L (42-121); ALT ALANINE AMINOTRANSFERASE 16 IU/L (10-60); AST ASPARTATE AMINOTRANSFERASE 29 IU/L (10-42); BUN - BLOOD UREA NITROGEN 28 mg/dL (6-20); CALCIUM 9.4 mg/dL (8.5-10.3); CARBON DIOXIDE - CO2 23 mmol/L (21-32); CHLORIDE 95 mmol/L (101-111); CREATININE 0.7 mg/dL (0.6-1.3); GFR - MDRD 81 (>89); GLUCOSE 138 mg/dL (74-104); POTASSIUM 3.1 mmol/L (3.5-4.5); SODIUM 129 mmol/L (135-145); TOTAL PROTEIN 9.8 g/dL (6.4-8.9)
[2024-08-18 18:58] LABS: LIPASE < 10 U/L (11-82)
[2024-08-18 19:11] LABS: BAND NEUTROPHILS % (MANUAL) 18 %; EOSINOPHILS # (MANUAL) 0.2 10^3/uL (0-0.7); LYMPHOCYTES # (MANUAL) 1.5 10^3/uL (1.5-3.5); LYMPHOCYTES % (MANUAL) 5 %; METAMYELOCYTES % (MANUAL) 1 %; NEUTROPHILS # (MANUAL) 21.9 10^3/uL (1.5-6.6); REACTIVE LYMPHS % (MANUAL) 1 %
[2024-08-18 19:12] LABS: PLATELET ESTIMATE, MANUAL NORMAL (130-450,000) (NORMAL); PLATELET MORPHOLOGY NORMAL APPEARANCE (NORMAL)
[2024-08-18 19:13] LABS: DIFFERENTIAL COMMENT MANUAL DIFFERENTIAL
[2024-08-18] MEDS ORDERED: iohexoL-300 100 ML VIAL ONE (19:21)
[2024-08-18] MEDS: PIPERACILLIN/TAZOBACTAM 3.375 GM in SODIUM CHLORIDE 0.9% MINIBAG 100 ML IV STA (19:24)
[2024-08-18] MEDS: iohexoL-300 100 ML VIAL IVP ONE (20:00)
--- NOTE | 2024-08-18 20:11 | XRAY Report ---
PROCEDURE: XR Chest 1V INDICATIONS: cough septic TECHNIQUE: One view of the chest was acquired. COMPARISON: 05/05/2024, same day CT FINDINGS: Surgical changes and devices: None. Lungs and pleura: Consolidation of the right middle lung zone. Mediastinum: Mediastinal contours appear normal. Heart size is normal. Large hiatal hernia. Bones and chest wall: No suspicious bony lesions. Overlying soft tissues appear unremarkable. IMPRESSION: Consolidation of the right middle lung zone, concerning for bacterial pneumonia. Recommend follow-up x-ray in 1-2 months to ensure resolution. Reviewed by: Tres Cohen MD on 08/18/2024 8:10 PM PDT Approved by: Tres Cohen MD on 08/18/2024 8:10 PM PDT Station ID: [email or web address]
--- NOTE | 2024-08-18 20:16 | CT Report ---
PROCEDURE: CT Chest W INDICATIONS: cough, abn cxr, pna vs mass CONTRAST: 100 ML OMNI 300 TECHNIQUE: After the administration of intravenous contrast, a CT scan of the chest was performed. Images were recorded and evaluated at appropriate window settings. Reformats: axial MIP of the chest, coronal and sagittal. For radiation dose reduction, the following was used: automated exposure control, adjustment of mA and/or kV according to patient size. COMPARISON: Same day x-ray, CT 05/05/2024 FINDINGS: Image quality: Diagnostic. Chest wall and lower neck: No thyroid nodule which requires sonographic follow up. No breast mass. No axillary or supraclavicular adenopathy by size. Lungs and pleura: Consolidation of the right upper lobe. There is a short segment of extension through the right minor fissure into the right middle lobe. Airways are patent. Mediastinum: Heart size is enlarged. No pericardial effusion. No large vessel abnormality. Reactive mediastinal lymph nodes. Large hiatal hernia. Bones: No aggressive osseous abnormality. Stable compression deformity of the T7 vertebral body. Upper Abdomen: Separately dictated. IMPRESSION: Right upper lobe pneumonia, without aggressive features. Recommend repeat CT in 2-3 months to ensure resolution. Reactive mediastinal lymph nodes. Large hiatal hernia. Other ancillary findings as above. Reviewed by: Tres Cohen MD on 08/18/2024 8:15 PM PDT Approved by: Tres Cohen MD on 08/18/2024 8:15 PM PDT Station ID: [email or web address]
--- NOTE | 2024-08-18 20:22 | CT Report ---
PROCEDURE: CT Abdomen/Pelvis W INDICATIONS: Abdominal pain, fever IN ONLY CONTRAST: 100 ML OMNI 300 TECHNIQUE: After the administration of intravenous contrast, a CT scan of the abdomen and pelvis was performed. Images were recorded and evaluated at appropriate window settings. Reformats: coronal and sagittal. For radiation dose reduction, the following was used: automated exposure control, adjustment of mA and/or kV according to patient size. COMPARISON: 02/18/2023 FINDINGS: Image quality: Diagnostic. Lower chest: Separately dictated. Liver: Hepatic steatosis. Gallbladder: No radiopaque stones or wall thickening. Biliary tree: No intrahepatic or extrahepatic dilation, accounting for age. Spleen: No splenomegaly. Pancreas: No pancreatic ductal dilation. Adrenals: No adrenal nodule. Kidneys and ureters: No hydronephrosis. No renal cystic lesion which requires follow up. No solid mass. Nonobstructing 7 mm right-sided nephrolithiasis. Additional punctate nonobstructing right-sided nephrolithiasis. Stable right- sided ureterectasis compared to prior. Stomach, bowel and peritoneum: No gastric or small bowel dilation. No abnormal wall thickening. No pathologic free fluid. Lymph nodes: No central or retroperitoneal adenopathy. Vessels: No infrarenal aortic aneurysm. Patent portal vein. PELVIS Reproductive organs: Unremarkable. Bladder: No abnormal wall thickening. Pelvic lymph nodes: No pelvic adenopathy by size criteria. Bones: No aggressive osseous abnormality. Degenerative changes of the spine. Grade 1 anterolisthesis of L5 on S1 and L4 on L5 due to facet arthrosis. Other: No significant ventral or inguinal hernia. IMPRESSION: No acute abnormality. Please see same day chest CT for further discussion. Stable right-sided ureterectasis, without obstructive uropathy. Other ancillary findings as above. Reviewed by: Tres Cohen MD on 08/18/2024 8:20 PM PDT Approved by: Tres Cohen MD on 08/18/2024 8:20 PM PDT Station ID: [email or web address]
--- NOTE | 2024-08-18 20:27 | HISTORY & PHYSICAL EXAMINATION ---
Chief Complaint Chief Complaint Chief Complaint: Nausea History of Present Illness History Obtained From History obtained from: Patient interview History of Present Illness HPI Comment/Other: 79-year-old female who had a cough for a week which is improving came in with nausea. She has some abdominal pain that is left over from her coughing. She also reports diarrhea. She reported EMS reports she was febrile and route. In the ER, chest x-ray showed right middle lobe pneumonia, CT chest showed right upper lobe pneumonia. No acute abnormalities on abdomen/pelvis. She was originally worked up for sepsis, so she received Zosyn empirically. After radiology reports, she was given a dose of azithromycin for pneumonia coverage. Given her tachycardia, fevers, white blood cell count of 24.9, hospitalist was contacted for admission for pneumonia causing an acute hypoxic respiratory failure and sepsis Meds/Allgy Home Medications Ambulatory Orders Medication Instructions Recorded Confirmed multivitamin (Multiple Vitamins 1 tab PO DAILY 8 08/18/24 tablet) vit C 50 mg-E 15 unit-zinc cit 4.5 1 tab PO DAILY 04/2908/18/24 mg-lutein 2.5 mg-zeaxan chew tablet (Pay with a Tweet [facility]) Allergies Allergies Allergy/AdvReac Type Severity Reaction Status Date / Time acetaminophen (From Percocet) AdvReac Nausea Verified 08/18/24 18:15 oxycodone (From Percocet) AdvReac Nausea Verified 08/18/24 18:15 PFSH Active Problems All Active Problems (Updated 08/18/24 @ 21:51 by Gabriel Araiza DNP) Electrolyte abnormality (Acute) Acute hypoxic respiratory failure (Acute) Sepsis (Acute) Pneumonia (Acute) Abdominal pain (Acute) Medical History Medical History (Updated 08/18/24 @ 21:51 by Gabriel Araiza DNP) No pertinent past medical history Surgical History Surgical History (Updated 05/05/24 @ 12:51 by Ashlie Sharma, RN, BSN) No pertinent past surgical history Social History Social History Smoking Status: Never smoker Relationship: Do you feel safe in your home environment?: Yes Suffered physical, verbal, emotional, or financial abuse?: No History of Abuse: No POLST Patient has POLST: No Review of Systems Status of ROS: 10 or more systems reviewed and unremarkable except as noted in history and below Constitutional Denies: Fever or Chills Cardiovascular Denies: Irregular heart rate, chest pain or palpitations Respiratory Reports: Cough Gastrointestinal Reports: Abdominal pain Exam Exam Vital Signs: Vital Signs x48h Temp Pulse Resp BP Pulse Ox O2 Flow Rate 08/18/24 21:32 37.3 C 101 H 20 110/53 L 95 4 08/18/24 20:42 37.3 C 105 H 20 137/55 H 97 4 08/18/24 20:09 105 H 18 104/51 L 96 4 08/18/24 18:10 38.3 C H 113 H 20 126/65 93 Constitutional normal general appearance and no apparent distress Elderly female HENMT normocephalic Neck/C-Spine visual inspection normal Lymph no lymphadenopathy noted Chest inspection of chest normal and palpation of chest normal Respiratory Rhonchorous breath sounds right upper lobe Cardiovascular heart rate abnormal (tachycardic) and regular rhythm noted Gastrointestinal abdomen normal to inspection, abdomen soft to palpation and nontender to palpation Extremities normal to inspection Neurology GCS 15 Hard of hearing Psychiatry oriented x3 Skin skin color normal Sepsis Event Note (H) Evaluation Possible source of Sepsis: positive Pulmonary, GI tract/intra-abdominal and Genitourinary Conclusion/Plan Problem List (1) Sepsis: Plan: Sepsis secondary to pneumonia Received 2 L fluid bolus in the ER Antibiotics as below Blood cultures in process UA with micro was ordered by ER provider Qualifiers: Sepsis acute organ dysfunction status: with acute organ dysfunction S epsis type: sepsis due to unspecified organism Severe sepsis acute organ dysfunction type: unspecified (2) Acute hypoxic respiratory failure: Plan: RT for management of oxygen needs and to promote pulmonary hygiene Antibiotics as below (3) Pneumonia: Plan: Received Zosyn in the ER due to concerns for sepsis of unknown source, they later added azithromycin Rocephin and azithromycin daily Secretion clearance protocol ordered Qualifiers: Laterality: right Lung location: middle lobe of lung Pneumonia type: d ue to unspecified organism Qualified Code(s): J18.9 - Pneumonia, unspecified organism (4) Abdominal pain: Plan: No acute findings on abdominal CT. This could be residual from her week of coughing. Continue to monitor Qualifiers: Abdominal location: generalized Qualified Code(s): R10.84 - Generalized abdominal pain (5) Electrolyte abnormality: Plan: Sodium 129, potassium 3.1 on presentation Received 2 L NS bolus and 25 mEq potassium replacement in the ER Recheck BMP in the morning One-time BMP at midnight. Will need trended BMPs if sodium remains below 130 Plan Admit inpatient med floor Full code She names her daughter as her surrogate decision maker Lab Results Lab results reviewed: Yes 08/18/24 18:32 08/18/24 18:32 Core Measures Anticipated LOS I expect patient to be DC'd or transferred within 96 hours.: Yes DVT/VTE - Prophylaxis VTE/DVT Prophylaxis med ordered at admit?: Yes
[2024-08-18] MEDS: AZITHROMYCIN INJ 500 MG in SODIUM CHLORIDE 0.9% 250 ML IV STA (20:31)
[2024-08-18] MEDS: POTASSIUM BICARB 25 MEQ TABLET PO STA (20:32)
[2024-08-18] MEDS: POTASSIUM CHLOR 10 MEQ/100 ML 10 MEQ/100 ML BAG IV STA (20:40)
--- OUTSIDE RECORDS SUMMARY | 2024-08-18 21:13 | EXTERNAL MEDICAL SUMMARY RPT | Continuity of Care Document ---
Author Organization [place] [facility] Address [address] [address] Phone Problems date description facility 2024-05-22 16:33 Pain in thoracic spine [facility] 2024-05-22 16:33 Right upper quadrant pain [facility] 2024-05-22 16:33 Nausea [facility] 2024-05-22 16:33 Nausea with vomiting, unspecifi ed [facility] 2024-05-22 16:33 Diarrhea, unspecified [facility] 2024-05-22 16:33 Dizziness and giddiness [facility] Results/Labs test date facility value unit notes Result panel 1 LIPASE 2024-08-18 18:32 [facility] < 10 u/l As of September 2022 testing method has changed, this may include reference ranges. ABNORMAL LYMPHS % (MANUAL) 2024-08-18 18:32 [facility] 0 % (missing) BASOPHILS # (MANUAL) 2024-08-18 18:32 [facility] 0.0 10 3/ul (missing) EOSINOPHILS # (MANUAL) 2024-08-18 18:32 [facility] 0.2 10 3/ul (missing) ALBUMIN/GLOBULIN RATIO 2024-08-18 18:32 [facility] 0.6 (missin g) (missing) CREATININE 2024-08-18 18:32 [facility] 0.7 mg/dl As of September 2022 testing method has changed, this may include reference ranges. METAMYELOCYTES % (MANUAL) 2024-08-18 18:32 [facility] 1 % (missing) REACTIVE LYMPHS % (MANUAL) 2024-08-18 18:32 [facility] 1 % (missing) RBC MORPHOLOGY (MULTIPLE) 2024-08-18 18:32 [facility] 1+ ANISOCYTOSIS (missin g) (missing) MONOCYTES # (MANUAL) 2024-08-18 18: [facility] 1.0 10 3/ul (missing) BILIRUBIN,TOTAL 2024-08-18 18: [facility] 1.0 mg/dl As of September 2022 testing method has changed, this may include reference ranges. LYMPHOCYTES # (MANUAL) 2024-08-18 18: [facility] 1.5 10 3/ul (missing) HGB - HEMOGLOBIN 2024-08-18 18: [facility] 10.2 g/dl (missing) TOTAL CELLS COUNTED 2024-08-18 18: [facility] 100 (missin g) (missing) ANION GAP 2024-08-18 18: [facility] 11.0 (missin g) (missing) SODIUM 2024-08-18 18: [facility] 129 mmol/l (missing) GLUCOSE 2024-08-18 18: [facility] 138 mg/dl As of September 2022 testing method has changed, this may include reference ranges. ALT ALANINE AMINOTRANSFERASE 2024-08-18 18: [facility] 16 iu/l As of September 2022 testing method has changed, this may include reference ranges. RED CELL DISTRIBUTION WIDTH 2024-08-18 18: [facility] 17.5 % (missing) BAND NEUTROPHILS % (MANUAL) 2024-08-18 18: [facility] 18 % (missing) RBC MORPHOLOGY (MULTIPLE) 2024-08-18 18: [facility] 2+ POIKILOCYTOSIS (missin g) (missing) NEUTROPHILS # (MANUAL) 2024-08-18 18: [facility] 21.9 10 3/ul (missing) CARBON DIOXIDE - CO2 2024-08-18 18: [facility] 23 mmol/l As of September 2022 testing method has changed, this may include reference ranges. WHITE BLOOD COUNT 2024-08-18 18: [facility] 24.9 x10 3/ul (missing) BUN - BLOOD UREA NITROGEN 2024-08-18 18: [facility] 28 mg/dl As of September 2022 testing method has changed, this may include reference ranges. AST ASPARTATE AMINOTRANSFERASE 2024-08-18 18:[facility] 29 iu/l As of September 2022 testing method has changed, this may include reference ranges. POTASSIUM 2024-08-18 18:32 [facility] 3.1 mmol/l As of September 2022 testing method has changed, this may include reference ranges. RED BLOOD COUNT 2024-08-18 18:32 [facility] 3.37 10 6/ul (missing) ALBUMIN 2024-08-18 18:32 [facility] 3.5 g/dl As of September 2022 testing method has changed, this may include reference ranges. LACTIC ACID, VENOUS 2024-08-18:32 [facility] 3.9 mmol/l N Critical result LAC 3.9 mmol/L called to and read back by ED/DR. HUGGINS at 18-Aug-2024 18[facility] As of September 2022 testing method has changed, this may include reference ranges. MEAN CORPUSCULAR HEMOGLOBIN 2024-08-18 18:32 [facility] 30.3 pg (missing) HCT - HEMATOCRIT 2024-08-18 18:32 [facility] 31.2 % (missing) MEAN CORPUSCULAR HGB CONC 2024-08-18 18:32 [facility] 32.7 g/dl (missing) ALKALINE PHOSPHATASE 2024-08-18 18:32 [facility] 34 iu/l As of September 2022 testing method has changed, this may include reference ranges. PLT - PLATELET COUNT 2024-08-18 18:32 [facility] 426 10 3/ul (missing) GLOBULIN 2024-08-18 18:32 [facility] 6.3 g/dl (missing) GFR - MDRD 2024-08-18 18:32 [facility] 81 (in g) Social History date description facility
[2024-08-18] MEDS ORDERED: ONDANSETRON ODT 4 MG TABLET TL PRN (21:58)
[2024-08-18] MEDS ORDERED: ONDANSETRON 4 MG/2 ML VIAL IVP PRN (21:58)
[2024-08-18 22:57] LABS: BILIRUBIN,URINE NEGATIVE (NEGATIVE); GLUCOSE, URINE (UA) NEGATIVE (NEGATIVE); KETONES,URINE (UA) NEGATIVE (NEGATIVE); LEUKOCYTE ESTERASE, URINE NEGATIVE (NEGATIVE); NITRITE,URINE POSITIVE (NEGATIVE); OCCULT BLOOD,URINE MODERATE (NEGATIVE); PROTEIN,URINE >=300 mg/dL (NEGATIVE); UROBILINOGEN,URINE 1 (NORMAL) E.U./dL (NORMAL)
[2024-08-18 23:01] LABS: CLARITY,URINE HAZY (CLEAR)
[2024-08-18] MEDS: cefTRIAXone 1 GM VIAL IVP SCH (23:04)
[2024-08-18 23:12] LABS: AMORPHOUS SEDIMENT,UR Few /LPF; BACTERIA,URINE Few /HPF (None Seen); SQUAMOUS EPITHELIAL CELL,UR FEW Squamous (<= Few)
[2024-08-19] MEDS: SODIUM CHLORIDE FLUSH 0.9% 10 ML SYRINGE IVP SCH (00:23)
[2024-08-19 00:25] LABS: CALCIUM 8.2 mg/dL (8.5-10.3); CREATININE 0.6 mg/dL (0.6-1.3); POTASSIUM 3.4 mmol/L (3.5-4.5)
[2024-08-19 06:23] LABS: BASOPHILS % (AUTO) 0.5 %; EOSINOPHILS % (AUTO) 0.7 %; HCT - HEMATOCRIT 26.3 % (37.0-47.0); HGB - HEMOGLOBIN 8.3 g/dL (12.0-16.0); LYMPHOCYTES % (AUTO) 5.6 %; MEAN CORPUSCULAR HEMOGLOBIN 30.1 pg (27.0-31.0); MEAN CORPUSCULAR HGB CONC 31.6 g/dL (32.0-36.0); MEAN CORPUSCULAR VOLUME 95.3 fL (81.0-99.0); MEAN PLATELET VOLUME 9.5 fL (7.9-10.8); MONOCYTES % (AUTO) 3.5 %; NEUTROPHILS % (AUTO) 89.1 %; PLT - PLATELET COUNT 387 10^3/uL (130-450); RED BLOOD COUNT 2.76 10^6/uL (4.20-5.40); RED CELL DISTRIBUTION WIDTH 17.6 % (12.0-15.0); WHITE BLOOD COUNT 21.7 x10^3/uL (4.8-10.8)
[2024-08-19 06:29] LABS: ABNORMAL LYMPHS % (MANUAL) 0 %
[2024-08-19 06:40] LABS: CALCIUM 8.4 mg/dL (8.5-10.3); CREATININE 0.5 mg/dL (0.6-1.3); POTASSIUM 3.1 mmol/L (3.5-4.5)
[2024-08-19 06:52] LABS: BAND NEUTROPHILS % (MANUAL) 7 %; DIFFERENTIAL COMMENT MANUAL DIFFERENTIAL; LYMPHOCYTES # (MANUAL) 1.5 10^3/uL (1.5-3.5); LYMPHOCYTES % (MANUAL) 7 %; METAMYELOCYTES % (MANUAL) 1 %; MONOCYTES # (MANUAL) 0.2 10^3/uL (0.0-1.0); NEUTROPHILS # (MANUAL) 19.7 10^3/uL (1.5-6.6); PLATELET ESTIMATE, MANUAL NORMAL (130-450,000) (NORMAL); PLATELET MORPHOLOGY NORMAL APPEARANCE (NORMAL); RBC MORPHOLOGY (MULTIPLE) NORMAL APPEARANCE (NORMAL); WBC MORPHOLOGY (MULTIPLE) NORMAL APPEARANCE (NORMAL)
--- NOTE | 2024-08-19 09:08 | PHARMACY PROGRESS NOTE ---
Best Possible Medication History Admit Date and Time: 08/18/242027 Home Medications Medication Instructions Recorded Confirmed Type ascorbic acid (vitamin C) 500 mg 500 mg PO DAILY 08/1908/19/24 History chewable tablet (Acerola C) cholecalciferol (vitamin D3) 50 50 mcg PO DAILY 08/19/24 History mcg (2,000 unit) capsule Processed by: Pharmacy Medications reviewed in ED?: No Medication History completed: Yes Patient Interview: Pt interview ONLY source [facility] Statement: As the person ultimately responsible for medication therapy, providers are able to order a medication from an existing home medication list in [facility] via the "Reconcile Routine" prior to Confirmation of that medication by underwriting support manager. Such practice is discouraged except when the physician, in their clinical judgment, deems that a medical need exists for a medication without regard to previous use.
[2024-08-19] MEDS: ENOXAPARIN 40 MG/0.4 ML SYRINGE SUBQ SCH (09:20)
[2024-08-19] MEDS: AZITHROMYCIN 250 MG TABLET PO SCH (09:20)
[2024-08-19] MEDS: POTASSIUM CHLORIDE 20 MEQ TABLET PO ONE (09:31)
--- NOTE | 2024-08-19 14:51 | PROVIDER PROGRESS NOTE ---
Subjective Prog Note Date Prog Note Date: 08/19/24 Subjective Pt reports feeling: Improved Current Medications Current Medications Current Medications: Current Medications Generic Name Dose Route Start Last Admin Trade Name Freq PRN Reason Stop Dose Admin Acetaminophen 650 mg 08/18/24 21:58 Acetaminophen 325 Mg Tablet PO Q4HR PRN Pain 1 to 4, or Fever Azithromycin 500 mg 08/19/24 09:00 08/19/24 09:20 Azithromycin 250 Mg Tablet PO 500 mg DAILY CHRISTIN Administration Ceftriaxone Sodium 1 gm 08/18/24 21:58 08/19/24 09:20 Ceftriaxone 1 Gm Vial IVP 1 gm DAILY CHRISTIN Administration Enoxaparin Sodium 40 mg 08/19/24 09:00 08/19/24 09:20 Enoxaparin 40 Mg/0.4 Ml Syringe SUBQ 40 mg DAILY CHRISTIN Administration Ondansetron HCl 4 mg 08/18/24 21:58 Ondansetron Odt 4 Mg Tablet TL Q6HR PRN Nausea / Vomiting Ondansetron HCl 4 mg 08/18/24 21:58 Ondansetron 4 Mg/2 Ml Vial IVP Q6HR PRN Nausea / Vomiting Sodium Chloride 10 ml 08/18/24 21:58 Sodium Chloride Flush 0.9% 10 Ml Syringe IVP PRN PRN NEEDED PER PROVIDER ORDERS Sodium Chloride 10 ml 08/19/24 01:00 08/19/24 09:21 Sodium Chloride Flush 0.9% 10 Ml Syringe IVP 10 ml 0100,0900,1700 CHRSITIN Administration Throat Lozenges 1 lozenge 08/19/24 14:31 Benzocaine/Menthol Lozenge MM Q2HR PRN Mouth Sore Pain Objective Vital Signs/Intake & Output Reviewed Vital Signs: Yes Vital Signs: Vital Signs x48h Temp Pulse Resp BP Pulse Ox O2 Flow Rate 08/19/24 08:21 36.5 C 88 24 127/63 97 4 08/19/24 08:10 4 Intake & Output: Intake & Output 08/16/24 08/17/24 08/18/24 08/19/24 23:59 23:59 23:59 23:59 Intake Total 2550 / 2550 910 / 910 Output Total 100 / 100 700 / 700 Balance 2450 / 2450 210 / 210 Weight (kg) 67.5 kg Objective General Appearance: positive No acute distress and Alert Eyes Bilateral: positive Normal inspection and PERRL ENT: positive ENT inspection nml Neck: positive Nml inspection Respiratory: positive Chest non-tender and No respiratory distress Cardiovascular: positive Regular rate & rhythm Abdomen: positive Non-tender Back: positive Nml inspection Skin: positive Color nml Extremities: positive Non-tender Neurologic/Psychiatric: positive Oriented x3 Lab Results 08/19/24 05:56 08/19/24 05:56 Other Labs: Lab Results x24hrs 08/19/24 08/19/24 08/18/24 Range/Units 05:56 00:00 22:35 WBC 21.7 H (4.8-10.8) x10^3/uL RBC 2.76 L (4.20-5.40) 10^6/uL Hgb 8.3 L (12.0-16.0) g/dL Hct 26.3 L (37.0-47.0) % MCV 95.3 (81.0-99.0) fL MCH 30.1 (27.0-31.0) pg MCHC 31.6 L (32.0-36.0) g/dL RDW 17.6 H (12.0-15.0) % Plt Count 387 (130-450) 10^3/uL MPV 9.5 (7.9-10.8) fL Neut # (Auto) Not Reportable Lymph # (Auto) Not Reportable [place] # (Auto) Not Reportable Eos # (Auto) Not Reportable Baso # (Auto) Not Reportable Absolute Nucleated RBC Not Reportable Total Counted 100 Band Neuts % (Manual) 7 (0 - 10) % Reactive Lymphs % (Man) % Abnorm Lymph % (Manual) 0 % Metamyelocytes % 1 H ( - 0) % Nucleated RBC % Not Reportable Neutrophils # (Manual) 19.7 H (1.5-6.6) 10^3/uL Lymphocytes # (Manual) 1.5 (1.5-3.5) 10^3/uL Monocytes # (Manual) 0.2 (0.0-1.0) 10^3/uL Eosinophils # (Manual) 0.0 (0-0.7) 10^3/uL Basophils # (Manual) 0.0 (0-0.1) 10^3/uL Differential Comment MANUAL DIFFERENTIAL WBC Morphology NORMAL APPEARANCE (NORMAL) Platelet Estimate NORMAL (130-450,000) (NORMAL) Platelet Morphology NORMAL APPEARANCE (NORMAL) RBC Morph Micro Appear NORMAL APPEARANCE (NORMAL) Sodium 131 L 132 L (135-145) mmol/L Potassium 3.1 L 3.4 L (3.5-4.5) mmol/L Chloride 103 103 (101-111) mmol/L Carbon Dioxide 23 24 (21-32) mmol/L Anion Gap 5.0 L 5.0 L (6-13) BUN 18 21 H (6-20) mg/dL Creatinine 0.5 L 0.6 (0.6-1.3) mg/dL Estimated GFR (MDRD) 119 97 (>89) Glucose 121 H 122 H (74-104) mg/dL Lactic Acid (0.5-2.2) mmol/L Calcium 8.4 L 8.2 L (8.5-10.3) mg/dL Magnesium 1.6 L (1.7-2.3) mg/dL Total Bilirubin (0.2-1.0) mg/dL AST (10-42) IU/L ALT (10-60) IU/L Alkaline Phosphatase (42-121) IU/L Total Protein (6.4-8.9) g/dL Albumin (3.2-5.5) g/dL Globulin (2.1-4.2) g/dL Albumin/Globulin Ratio (1.0-2.2) Lipase (11-82) U/L Urine Color YELLOW Urine Clarity HAZY (CLEAR) Urine pH 6.0 (5.0-7.5) PH Ur Specific [place] 1.015 (1.002-1.030) Urine Protein >=300 H (NEGATIVE) mg/dL Urine Glucose (UA) NEGATIVE (NEGATIVE) mg/dL Urine Ketones NEGATIVE (NEGATIVE) mg/dL Urine Occult Blood MODERATE H (NEGATIVE) Urine Nitrite POSITIVE H (NEGATIVE) Urine Bilirubin NEGATIVE (NEGATIVE) Urine Urobilinogen 1 (NORMAL) (NORMAL) E.U./dL Ur Leukocyte Esterase NEGATIVE (NEGATIVE) Urine RBC 6-10 H (0-5) /HPF Urine WBC 4-5 (0-5) /HPF Ur Squamous Epith Cells FEW Squamous (<= Few) Amorphous Sediment Few /LPF Urine Bacteria Few (None Seen) /HPF Ur Microscopic Review INDICATED Urine Culture Comments INDICATED 0508/18/24 08/18/24 Range/Units 22:22 18:32 18:32 WBC 24.9 H (4.8-10.8) x10^3/uL RBC 3.37 L (4.20-5.40) 10^6/uL Hgb 10.2 L (12.0-16.0) g/dL Hct 31.2 L (37.0-47.0) % MCV 92.6 (81.0-99.0) fL MCH 30.3 (27.0-31.0) pg MCHC 32.7 (32.0-36.0) g/dL RDW 17.5 H (12.0-15.0) % Plt Count 426 (130-450) 10^3/uL MPV 9.6 (7.9-10.8) fL Neut # (Auto) Not Reportable Lymph # (Auto) Not Reportable [place] # (Auto) Not Reportable Eos # (Auto) Not Reportable Baso # (Auto) Not Reportable Absolute Nucleated RBC Not Reportable Total Counted 100 Band Neuts % (Manual) 18 H (0 - 10) % Reactive Lymphs % (Man) 1 % Abnorm Lymph % (Manual) 0 % Metamyelocytes % 1 H ( - 0) % Nucleated RBC % Not Reportable Neutrophils # (Manual) 21.9 H (1.5-6.6) 10^3/uL Lymphocytes # (Manual) 1.5 (1.5-3.5) 10^3/uL Monocytes # (Manual) 1.0 (0.0-1.0) 10^3/uL Eosinophils # (Manual) 0.2 (0-0.7) 10^3/uL Basophils # (Manual) 0.0 (0-0.1) 10^3/uL Differential Comment MANUAL DIFFERENTIAL WBC Morphology (NORMAL) Platelet Estimate NORMAL (130-450,000) (NORMAL) Platelet Morphology NORMAL APPEARANCE (NORMAL) RBC Morph Micro Appear 2+ POIKILOCYTOSIS 1+ ANISOCYTOSIS (NORMAL) Sodium 129 L (135-145) mmol/L Potassium 3.1 L (3.5-4.5) mmol/L Chloride 95 L (101-111) mmol/L Carbon Dioxide 23 (21-32) mmol/L Anion Gap 11.0 (6-13) BUN 28 H (6-20) mg/dL Creatinine 0.7 (0.6-1.3) mg/dL Estimated GFR (MDRD) 81 L (>89) Glucose 138 H (74-104) mg/dL Lactic Acid 1.5 3.9 H* (0.5-2.2) mmol/L Calcium 9.4 (8.5-10.3) mg/dL Magnesium (1.7-2.3) mg/dL Total Bilirubin 1.0 (0.2-1.0) mg/dL AST 29 (10-42) IU/L ALT 16 (10-60) IU/L Alkaline Phosphatase 34 L (42-121) IU/L Total Protein 9.8 H (6.4-8.9) g/dL Albumin 3.5 (3.2-5.5) g/dL Globulin 6.3 H (2.1-4.2) g/dL Albumin/Globulin Ratio 0.6 L (1.0-2.2) Lipase < 10 L (11-82) U/L Urine Color Urine Clarity (CLEAR) Urine pH (5.0-7.5) PH Ur Specific [place] (1.002-1.030) Urine Protein (NEGATIVE) mg/dL Urine Glucose (UA) (NEGATIVE) mg/dL Urine Ketones (NEGATIVE) mg/dL Urine Occult Blood (NEGATIVE) Urine Nitrite (NEGATIVE) Urine Bilirubin (NEGATIVE) Urine Urobilinogen (NORMAL) E.U./dL Ur Leukocyte Esterase (NEGATIVE) Urine RBC (0-5) /HPF Urine WBC (0-5) /HPF Ur Squamous Epith Cells (<= Few) Amorphous Sediment /LPF Urine Bacteria (None Seen) /HPF Ur Microscopic Review Urine Culture Comments Sepsis Event Note (H) Evaluation Possible source of Sepsis: positive Pulmonary, GI tract/intra-abdominal and Genitourinary Assessment/Plan Problem List (1) Sepsis: Impression: Secondary to pneumonia Received 2 L fluid bolus UA with micro concerning for UTI, urine culture pending WBC improved to 21.7 today Lactate improved to 1.5 after 2 L bolus Blood culture PCR positive for streptococcal infection Check echo Repeat blood cultures after 48 hours of antibiotics Sensitivities to follow Vital signs stable Antibiotics as below Qualifiers: Sepsis acute organ dysfunction status: with acute organ dysfunction S epsis type: sepsis due to unspecified organism Severe sepsis acute organ dysfunction type: unspecified (2) Acute hypoxic respiratory failure: Impression: Secondary to pneumonia Continue RT lung inflation protocol and secretion clearance protocol (3) Pneumonia: Impression: Continue course of Rocephin and azithromycin for community-acquired pneumonia Azithromycin for total 3 days Will need extended course of beta-lactam therapy, maintaining Rocephin until blood cultures further result Qualifiers: Laterality: right Lung location: middle lobe of lung Pneumonia type: d ue to unspecified organism Qualified Code(s): J18.9 - Pneumonia, unspecified organism (4) Abdominal pain: Impression: Much improved overnight Likely related to significant coughing over the past week Qualifiers: Abdominal location: generalized Qualified Code(s): R10.84 - Generalized abdominal pain (5) Electrolyte abnormality:
[2024-08-19] MEDS: BENZOCAINE/MENTHOL LOZENGE MM PRN (15:09)
[2024-08-19] MEDS: NYSTATIN 500000 UNITS/5 ML UDC PO SCH (21:23)
[2024-08-20] MEDS: ACETAMINOPHEN 325 MG TABLET PO PRN (00:05)
[2024-08-20 04:46] LABS: BASOPHILS % (AUTO) 0.2 %; EOSINOPHILS % (AUTO) 0.2 %; HCT - HEMATOCRIT 26.3 % (37.0-47.0); HGB - HEMOGLOBIN 8.5 g/dL (12.0-16.0); LYMPHOCYTES # (AUTO) 1.9 10^3/uL (1.5-3.5); LYMPHOCYTES % (AUTO) 11.1 %; MEAN CORPUSCULAR HGB CONC 32.3 g/dL (32.0-36.0); MEAN PLATELET VOLUME 9.7 fL (7.9-10.8); MONOCYTES # (AUTO) 0.9 10^3/uL (0.0-1.0); MONOCYTES % (AUTO) 5.1 %; NEUTROPHILS # (AUTO) 14.1 10^3/uL (1.5-6.6); NEUTROPHILS % (AUTO) 82.9 %; PLT - PLATELET COUNT 406 10^3/uL (130-450); RED BLOOD COUNT 2.74 10^6/uL (4.20-5.40); RED CELL DISTRIBUTION WIDTH 17.5 % (12.0-15.0)
[2024-08-20 05:04] LABS: CALCIUM 8.8 mg/dL (8.5-10.3); CREATININE 0.5 mg/dL (0.6-1.3); POTASSIUM 3.6 mmol/L (3.5-4.5)
--- NOTE | 2024-08-20 11:30 | PROVIDER PROGRESS NOTE ---
Subjective Prog Note Date Prog Note Date: 08/20/24 Subjective Pt reports feeling: No change Current Medications Current Medications Current Medications: Current Medications Generic Name Dose Route Start Last Admin Trade Name Freq PRN Reason Stop Dose Admin Acetaminophen 650 mg 08/18/24 21:58 08/20/24 00:05 Acetaminophen 325 Mg Tablet PO 650 mg Q4HR PRN Administration Pain 1 to 4, or Fever Azithromycin 500 mg 08/19/24 09:00 08/20/24 09:30 Azithromycin 250 Mg Tablet PO 500 mg DAILY CHRISTIN Administration Ceftriaxone Sodium 1 gm 08/18/24 21:58 08/20/24 09:30 Ceftriaxone 1 Gm Vial IVP 1 gm DAILY CHRISTIN Administration Enoxaparin Sodium 40 mg 08/19/24 09:00 08/20/24 09:30 Enoxaparin 40 Mg/0.4 Ml Syringe SUBQ 40 mg DAILY CHRISTIN Administration Nystatin 5 ml 08/19/24 21:00 08/20/24 09:30 Nystatin 550496 Units/5 Ml Udc PO 5 ml QID CHRISTIN Administration Ondansetron HCl 4 mg 08/18/24 21:58 Ondansetron Odt 4 Mg Tablet TL Q6HR PRN Nausea / Vomiting Ondansetron HCl 4 mg 08/18/24 21:58 Ondansetron 4 Mg/2 Ml Vial IVP Q6HR PRN Nausea / Vomiting Sodium Chloride 10 ml 08/18/24 21:58 Sodium Chloride Flush 0.9% 10 Ml Syringe IVP PRN PRN NEEDED PER PROVIDER ORDERS Sodium Chloride 10 ml 08/19/24 01:00 08/20/24 09:04 Sodium Chloride Flush 0.9% 10 Ml Syringe IVP 10 ml 0100,0900,1700 CHRISTIN Administration Throat Lozenges 1 lozenge 08/19/24 14:31 08/19/24 15:09 Benzocaine/Menthol Lozenge MM 1 lozenge Q2HR PRN Administration Mouth Sore Pain Objective Vital Signs/Intake & Output Reviewed Vital Signs: Yes Vital Signs: Vital Signs x48h Temp Pulse Resp BP Pulse Ox O2 Flow Rate 08/20/24 09:26 3 08/20/24 09:00 36.7 C 70 20 123/67 99 3 Intake & Output: Intake & Output 08/17/24 08/18/24 08/19/24 08/20/24 23:59 23:59 23:59 23:59 Intake Total 2550 / 2550 1310 / 1310 300 / 300 Output Total 100 / 100 900 / 900 250 / 250 Balance 2450 / 2450 410 / 410 50 / 50 Weight (kg) 67.5 kg Objective General Appearance: positive No acute distress and Alert Eyes Bilateral: positive Normal inspection and PERRL ENT: positive ENT inspection nml Neck: positive Nml inspection Respiratory: positive Chest non-tender and No respiratory distress Cardiovascular: positive Regular rate & rhythm Abdomen: positive Non-tender Back: positive Nml inspection Skin: positive Color nml Extremities: positive Non-tender Neurologic/Psychiatric: positive Oriented x3 Lab Results 08/20/24 04:07 08/20/24 04:07 Other Labs: Lab Results x24hrs 08/20/24 Range/Units 04:07 WBC 17.0 H (4.8-10.8) x10^3/uL RBC 2.74 L (4.20-5.40) 10^6/uL Hgb 8.5 L (12.0-16.0) g/dL Hct 26.3 L (37.0-47.0) % MCV 96.0 (81.0-99.0) fL MCH 31.0 (27.0-31.0) pg MCHC 32.3 (32.0-36.0) g/dL RDW 17.5 H (12.0-15.0) % Plt Count 406 (130-450) 10^3/uL MPV 9.7 (7.9-10.8) fL Neut # (Auto) 14.1 H (1.5-6.6) 10^3/uL Lymph # (Auto) 1.9 (1.5-3.5) 10^3/uL [place] # (Auto) 0.9 (0.0-1.0) 10^3/uL Eos # (Auto) 0.0 (0.0-0.7) 10^3/uL Baso # (Auto) 0.0 (0.0-0.1) 10^3/uL Absolute Nucleated RBC 0.00 x10^3/uL Nucleated RBC % 0.0 /100WBC Sodium 135 (135-145) mmol/L Potassium 3.6 (3.5-4.5) mmol/L Chloride 104 (101-111) mmol/L Carbon Dioxide 26 (21-32) mmol/L Anion Gap 5.0 L (6-13) BUN 17 (6-20) mg/dL Creatinine 0.5 L (0.6-1.3) mg/dL Estimated GFR (MDRD) 119 (>89) Glucose 97 (74-104) mg/dL Calcium 8.8 (8.5-10.3) mg/dL Sepsis Event Note (H) Evaluation Possible source of Sepsis: positive Pulmonary, GI tract/intra-abdominal and Genitourinary Assessment/Plan Problem List (1) Sepsis: Impression: Secondary to pneumonia Received 2 L fluid bolus UA with micro concerning for UTI, urine culture pending WBC improved to 21.7 today Lactate improved to 1.5 after 2 L bolus Blood culture PCR positive for streptococcal infection Check echo Repeat blood cultures after 48 hours of antibiotics Sensitivities to follow Vital signs stable Antibiotics as below 08/20/2024: Continue IV Rocephin while awaiting culture sensitivities. VSS. WBC 17 today. Echo ordered, will likely not be performed until Wednesday. Repeat blood cultures tomorrow Qualifiers: Sepsis acute organ dysfunction status: with acute organ dysfunction S epsis type: sepsis due to unspecified organism Severe sepsis acute organ dysfunction type: unspecified (2) Acute hypoxic respiratory failure: Impression: Secondary to pneumonia Continue RT lung inflation protocol and secretion clearance protocol 08/20/2024: Continues to require 3 L O2. Overall appearing improved. Manage pneumonia as below (3) Pneumonia: Impression: Continue course of Rocephin and azithromycin for community-acquired pneumonia Azithromycin for total 3 days Will need extended course of beta-lactam therapy, maintaining Rocephin until blood cultures further result 08/20/2024: Continue Rocephin. Tomorrow will be last day of azithromycin Qualifiers: Laterality: right Lung location: middle lobe of lung Pneumonia type: d ue to unspecified organism Qualified Code(s): J18.9 - Pneumonia, unspecified organism (4) Electrolyte abnormality: Impression: Sodium 135, potassium 3.6 today. BMP and mag in a.m. (5) Abdominal pain: Impression: Resolved, secondary to significant coughing Qualifiers: Abdominal location: generalized Qualified Code(s): R10.84 - Generalized abdominal pain
[2024-08-21] MEDS: SODIUM CHLORIDE FLUSH 0.9% 10 ML SYRINGE IVP PRN (00:51)
[2024-08-21 05:19] LABS: BASOPHILS % (AUTO) 0.3 %; EOSINOPHILS # (AUTO) 0.1 10^3/uL (0.0-0.7); EOSINOPHILS % (AUTO) 1.2 %; HCT - HEMATOCRIT 29.5 % (37.0-47.0); HGB - HEMOGLOBIN 9.2 g/dL (12.0-16.0); LYMPHOCYTES # (AUTO) 1.7 10^3/uL (1.5-3.5); LYMPHOCYTES % (AUTO) 18.7 %; MEAN CORPUSCULAR HEMOGLOBIN 29.8 pg (27.0-31.0); MEAN CORPUSCULAR HGB CONC 31.2 g/dL (32.0-36.0); MEAN CORPUSCULAR VOLUME 95.5 fL (81.0-99.0); MEAN PLATELET VOLUME 10.1 fL (7.9-10.8); MONOCYTES # (AUTO) 0.9 10^3/uL (0.0-1.0); MONOCYTES % (AUTO) 10.1 %; NEUTROPHILS # (AUTO) 6.4 10^3/uL (1.5-6.6); NEUTROPHILS % (AUTO) 68.9 %; NRBC ABSOLUTE COUNT (AUTO) 0.02 x10^3/uL; NUCLEATED RED BLOOD CELLS AUTO 0.2 /100WBC; PLT - PLATELET COUNT 469 10^3/uL (130-450); RED BLOOD COUNT 3.09 10^6/uL (4.20-5.40); RED CELL DISTRIBUTION WIDTH 17.6 % (12.0-15.0); WHITE BLOOD COUNT 9.2 x10^3/uL (4.8-10.8)
[2024-08-21 05:36] LABS: CALCIUM 8.4 mg/dL (8.5-10.3); CREATININE 0.5 mg/dL (0.6-1.3); MAGNESIUM 1.6 mg/dL (1.7-2.3); POTASSIUM 3.5 mmol/L (3.5-4.5)
[2024-08-21] MEDS: cefTRIAXone 1 GM VIAL IVP ONE (12:43)
--- NOTE | 2024-08-21 14:04 | PROVIDER PROGRESS NOTE ---
Subjective Prog Note Date Prog Note Date: 08/21/24 Subjective Pt reports feeling: No change Current Medications Current Medications Current Medications: Current Medications Generic Name Dose Route Start Last Admin Trade Name Freq PRN Reason Stop Dose Admin Acetaminophen 650 mg 08/18/24 21:58 08/21/24 08:18 Acetaminophen 325 Mg Tablet PO 650 mg Q4HR PRN Administration Pain 1 to 4, or Fever Ceftriaxone Sodium 2 gm 08/22/24 09:00 Ceftriaxone 2 Gm Vial IVP DAILY CHRISTIN Enoxaparin Sodium 40 mg 08/19/24 09:00 08/21/24 08:18 Enoxaparin 40 Mg/0.4 Ml Syringe SUBQ 40 mg DAILY CHRISTIN Administration Magnesium Sulfate 2 gm in 50 mls @ 50 mls/hr 08/21/24 13:52 Magnesium Sulfate IV 08/21/24 14:51 ONCE ONE Nystatin 5 ml 08/19/24 21:00 08/21/24 12:44 Nystatin 267681 Units/5 Ml Udc PO 5 ml QID CHRISTIN Administration Ondansetron HCl 4 mg 08/18/24 21:58 Ondansetron Odt 4 Mg Tablet TL Q6HR PRN Nausea / Vomiting Ondansetron HCl 4 mg 08/18/24 21:58 Ondansetron 4 Mg/2 Ml Vial IVP Q6HR PRN Nausea / Vomiting Sodium Chloride 10 ml 08/18/24 21:58 08/21/24 00:51 Sodium Chloride Flush 0.9% 10 Ml Syringe IVP 10 ml PRN PRN Administration NEEDED PER PROVIDER ORDERS Sodium Chloride 10 ml 08/19/24 01:00 08/21/24 08:20 Sodium Chloride Flush 0.9% 10 Ml Syringe IVP 10 ml 0100,0900,1700 CHRISTIN Administration Throat Lozenges 1 lozenge 08/19/24 14:31 08/20/24 20:56 Benzocaine/Menthol Lozenge MM 1 lozenge Q2HR PRN Administration Mouth Sore Pain Objective Vital Signs/Intake & Output Reviewed Vital Signs: Yes Vital Signs: Vital Signs x48h Temp Pulse Resp BP Pulse Ox 08/21/24 09:45 36.8 C 75 20 156/80 H 95 Intake & Output: Intake & Output 08/18/24 08/19/24 08/20/24 08/21/24 23:59 23:59 23:59 23:59 Intake Total 2550 / 2550 1310 / 1310 598 / 598 420 / 420 Output Total 100 / 100 900 / 900 500 / 500 1000 / 1000 Balance 2450 / 2450 410 / 410 98 / 98 -580 / -580 Weight (kg) 67.5 kg Objective General Appearance: positive No acute distress and Alert Eyes Bilateral: positive Normal inspection and PERRL ENT: positive ENT inspection nml Neck: positive Nml inspection Respiratory: positive Chest non-tender and No respiratory distress Cardiovascular: positive Regular rate & rhythm Abdomen: positive Non-tender Back: positive Nml inspection Skin: positive Color nml Extremities: positive Non-tender Neurologic/Psychiatric: positive Oriented x3 Lab Results 08/21/24 04:25 08/21/24 04:25 Other Labs: Lab Results x24hrs 08/21/24 Range/Units 04:25 WBC 9.2 (4.8-10.8) x10^3/uL RBC 3.09 L (4.20-5.40) 10^6/uL Hgb 9.2 L (12.0-16.0) g/dL Hct 29.5 L (37.0-47.0) % MCV 95.5 (81.0-99.0) fL MCH 29.8 (27.0-31.0) pg MCHC 31.2 L (32.0-36.0) g/dL RDW 17.6 H (12.0-15.0) % Plt Count 469 H (130-450) 10^3/uL MPV 10.1 (7.9-10.8) fL Neut # (Auto) 6.4 (1.5-6.6) 10^3/uL Lymph # (Auto) 1.7 (1.5-3.5) 10^3/uL [place] # (Auto) 0.9 (0.0-1.0) 10^3/uL Eos # (Auto) 0.1 (0.0-0.7) 10^3/uL Baso # (Auto) 0.0 (0.0-0.1) 10^3/uL Absolute Nucleated RBC 0.02 x10^3/uL Nucleated RBC % 0.2 /100WBC Sodium 134 L (135-145) mmol/L Potassium 3.5 (3.5-4.5) mmol/L Chloride 103 (101-111) mmol/L Carbon Dioxide 26 (21-32) mmol/L Anion Gap 5.0 L (6-13) BUN 12 (6-20) mg/dL Creatinine 0.5 L (0.6-1.3) mg/dL Estimated GFR (MDRD) 119 (>89) Glucose 97 (74-104) mg/dL Calcium 8.4 L (8.5-10.3) mg/dL Magnesium 1.6 L (1.7-2.3) mg/dL Sepsis Event Note (H) Evaluation Possible source of Sepsis: positive Pulmonary, GI tract/intra-abdominal and Genitourinary Assessment/Plan Problem List (1) Sepsis: Impression: Secondary to pneumonia Received 2 L fluid bolus UA with micro concerning for UTI, urine culture pending WBC improved to 21.7 today Lactate improved to 1.5 after 2 L bolus Blood culture PCR positive for streptococcal infection Check echo Repeat blood cultures after 48 hours of antibiotics Sensitivities to follow Vital signs stable Antibiotics as below 08/20/2024: Continue IV Rocephin while awaiting culture sensitivities. VSS. WBC 17 today. Echo ordered, will likely not be performed until Wednesday. Repeat blood cultures tomorrow 08/21/2024: Leukocytosis has resolved. Guideline recommendations for streptococcal bacteremia from known pulmonary source are for total 5 to 7-day treatment. She will continue IV Rocephin for now. Repeat blood cultures have been ordered Qualifiers: Sepsis acute organ dysfunction status: with acute organ dysfunction S epsis type: sepsis due to unspecified organism Severe sepsis acute organ dysfunction type: unspecified (2) Acute hypoxic respiratory failure: Impression: Secondary to pneumonia Continue RT lung inflation protocol and secretion clearance protocol 08/20/2024: Continues to require 3 L O2. Overall appearing improved. Manage pneumonia as below 08/21/2024: On room air (3) Pneumonia: Impression: Continue course of Rocephin and azithromycin for community-acquired pneumonia Azithromycin for total 3 days Will need extended course of beta-lactam therapy, maintaining Rocephin until blood cultures further result 08/20/2024: Continue Rocephin. Tomorrow will be last day of azithromycin 08/21/2024: Continuing Rocephin. She is completed a course of azithromycin Qualifiers: Laterality: right Lung location: middle lobe of lung Pneumonia type: d ue to unspecified organism Qualified Code(s): J18.9 - Pneumonia, unspecified organism (4) Electrolyte abnormality: Impression: Mag 1.6 today. Repleted with 2 g IV magnesium (5) Abdominal pain: Impression: Resolved, secondary to significant coughing Qualifiers: Abdominal location: generalized Qualified Code(s): R10.84 - Generalized abdominal pain
[2024-08-21] MEDS: MAGNESIUM SULFATE 2 GRAM 2 GM/50 ML BAG IV ONE (14:45)
[2024-08-22 05:56] LABS: CALCIUM 8.3 mg/dL (8.5-10.3); CREATININE 0.4 mg/dL (0.6-1.3); POTASSIUM 3.2 mmol/L (3.5-4.5)
[2024-08-22 06:15] LABS: BASOPHILS % (AUTO) 0.2 %; EOSINOPHILS % (AUTO) 1.1 %; HCT - HEMATOCRIT 29.7 % (37.0-47.0); HGB - HEMOGLOBIN 9.7 g/dL (12.0-16.0); LYMPHOCYTES % (AUTO) 24.1 %; MEAN CORPUSCULAR HEMOGLOBIN 30.1 pg (27.0-31.0); MEAN CORPUSCULAR HGB CONC 32.7 g/dL (32.0-36.0); MEAN CORPUSCULAR VOLUME 92.2 fL (81.0-99.0); MEAN PLATELET VOLUME 9.5 fL (7.9-10.8); MONOCYTES % (AUTO) 13.5 %; PLT - PLATELET COUNT 537 10^3/uL (130-450); RED BLOOD COUNT 3.22 10^6/uL (4.20-5.40); RED CELL DISTRIBUTION WIDTH 17.3 % (12.0-15.0); WHITE BLOOD COUNT 9.1 x10^3/uL (4.8-10.8)
[2024-08-22 06:17] LABS: SLIDE REVIEW? Indicated
[2024-08-22 06:18] LABS: ABNORMAL LYMPHS % (MANUAL) 0 %; BAND NEUTROPHILS % (MANUAL) 0 %
[2024-08-22 07:12] LABS: LYMPHOCYTES # (MANUAL) 2.4 10^3/uL (1.5-3.5); LYMPHOCYTES % (MANUAL) 25 %; MONOCYTES # (MANUAL) 1.1 10^3/uL (0.0-1.0); NEUTROPHILS # (MANUAL) 5.6 10^3/uL (1.5-6.6); NUCLEATED RBC (MANUAL) 1 %; REACTIVE LYMPHS % (MANUAL) 1 %
[2024-08-22 07:13] LABS: DIFFERENTIAL COMMENT MANUAL DIFFERENTIAL; PLATELET ESTIMATE, MANUAL INCREASED (>450,000) (NORMAL); PLATELET MORPHOLOGY NORMAL APPEARANCE (NORMAL); RBC MORPHOLOGY (MULTIPLE) 1+ HYPOCHROMASIA (NORMAL)
[2024-08-22] MEDS: cefTRIAXone 2 GM VIAL IVP SCH (08:57)
[2024-08-22] MEDS: POTASSIUM CHLORIDE 20 MEQ TABLET PO ONE (10:25)
--- NOTE | 2024-08-22 14:17 | PROVIDER PROGRESS NOTE ---
Subjective Prog Note Date Prog Note Date: 08/22/24 Subjective Pt reports feeling: No change Current Medications Current Medications Current Medications: Current Medications Generic Name Dose Route Start Last Admin Trade Name Freq PRN Reason Stop Dose Admin Acetaminophen 650 mg 08/18/24 21:58 08/22/24 07:59 Acetaminophen 325 Mg Tablet PO 650 mg Q4HR PRN Administration Pain 1 to 4, or Fever Ceftriaxone Sodium 2 gm 08/22/24 09:00 08/22/24 08:57 Ceftriaxone 2 Gm Vial IVP 2 gm DAILY CHRISTIN Administration Enoxaparin Sodium 40 mg 08/19/24 09:00 08/22/24 08:57 Enoxaparin 40 Mg/0.4 Ml Syringe SUBQ 40 mg DAILY CHRISTIN Administration Nystatin 5 ml 08/19/24 21:00 08/22/24 14:13 Nystatin 582867 Units/5 Ml Udc PO 5 ml QID CHRISTIN Administration Ondansetron HCl 4 mg 08/18/24 21:58 Ondansetron Odt 4 Mg Tablet TL Q6HR PRN Nausea / Vomiting Ondansetron HCl 4 mg 08/18/24 21:58 Ondansetron 4 Mg/2 Ml Vial IVP Q6HR PRN Nausea / Vomiting Polyethylene Glycol 17 gm 08/23/24 09:00 Polyethylene Glycol 3350 17 Gm Packet PO DAILY CHRISTIN Sodium Chloride 10 ml 08/18/24 21:58 08/21/24 00:51 Sodium Chloride Flush 0.9% 10 Ml Syringe IVP 10 ml PRN PRN Administration NEEDED PER PROVIDER ORDERS Sodium Chloride 10 ml 08/19/24 01:00 08/22/24 08:58 Sodium Chloride Flush 0.9% 10 Ml Syringe IVP 10 ml 0100,0900,1700 CHRISTIN Administration Throat Lozenges 1 lozenge 08/19/24 14:31 08/20/24 20:56 Benzocaine/Menthol Lozenge MM 1 lozenge Q2HR PRN Administration Mouth Sore Pain Objective Vital Signs/Intake & Output Reviewed Vital Signs: Yes Vital Signs: Vital Signs x48h Temp Pulse Resp BP Pulse Ox 08/22/24 08:17 36.7 C 97 18 136/72 H 93 Intake & Output: Intake & Output 08/19/24 08/20/24 08/21/24 08/22/24 23:59 23:59 23:59 23:59 Intake Total 1310 / 1310 598 / 598 630 / 630 750 / 750 Output Total 900 / 900 500 / 500 2500 / 2500 750 / 750 Balance 410 / 410 98 / 98 -1870 / -1870 0 / 0 Objective General Appearance: positive No acute distress and Alert Eyes Bilateral: positive Normal inspection and PERRL ENT: positive ENT inspection nml Neck: positive Nml inspection Respiratory: positive Chest non-tender and No respiratory distress Cardiovascular: positive Regular rate & rhythm Abdomen: positive Non-tender Back: positive Nml inspection Skin: positive Color nml Extremities: positive Non-tender Neurologic/Psychiatric: positive Oriented x3 Lab Results 08/22/24 05:25 08/22/24 05:25 Other Labs: Lab Results x24hrs 08/22/24 Range/Units 05:25 WBC 9.1 (4.8-10.8) x10^3/uL RBC 3.22 L (4.20-5.40) 10^6/uL Hgb 9.7 L (12.0-16.0) g/dL Hct 29.7 L (37.0-47.0) % MCV 92.2 (81.0-99.0) fL MCH 30.1 (27.0-31.0) pg MCHC 32.7 (32.0-36.0) g/dL RDW 17.3 H (12.0-15.0) % Plt Count 537 H (130-450) 10^3/uL MPV 9.5 (7.9-10.8) fL Neut # (Auto) Not Reportable Lymph # (Auto) Not Reportable [place] # (Auto) Not Reportable Eos # (Auto) Not Reportable Baso # (Auto) Not Reportable Absolute Nucleated RBC Not Reportable Total Counted 100 Band Neuts % (Manual) 0 (0 - 10) % Reactive Lymphs % (Man) 1 % Abnorm Lymph % (Manual) 0 % Nucleated RBC % Not Reportable Neutrophils # (Manual) 5.6 (1.5-6.6) 10^3/uL Lymphocytes # (Manual) 2.4 (1.5-3.5) 10^3/uL Monocytes # (Manual) 1.1 H (0.0-1.0) 10^3/uL Eosinophils # (Manual) 0.0 (0-0.7) 10^3/uL Basophils # (Manual) 0.0 (0-0.1) 10^3/uL Nucleated RBCs 1 % Differential Comment MANUAL DIFFERENTIAL Manual Slide Review Indicated Platelet Estimate INCREASED (>450,000) (NORMAL) Platelet Morphology NORMAL APPEARANCE (NORMAL) RBC Morph Micro Appear 1+ HYPOCHROMASIA (NORMAL) Sodium 132 L (135-145) mmol/L Potassium 3.2 L (3.5-4.5) mmol/L Chloride 101 (101-111) mmol/L Carbon Dioxide 23 (21-32) mmol/L Anion Gap 8.0 (6-13) BUN 9 (6-20) mg/dL Creatinine 0.4 L (0.6-1.3) mg/dL Estimated GFR (MDRD) 154 (>89) Glucose 101 (74-104) mg/dL Calcium 8.3 L (8.5-10.3) mg/dL Sepsis Event Note (H) Evaluation Possible source of Sepsis: positive Pulmonary, GI tract/intra-abdominal and Genitourinary Assessment/Plan Problem List (1) Sepsis: Impression: Secondary to pneumonia Received 2 L fluid bolus UA with micro concerning for UTI, urine culture pending WBC improved to 21.7 today Lactate improved to 1.5 after 2 L bolus Blood culture PCR positive for streptococcal infection Check echo Repeat blood cultures after 48 hours of antibiotics Sensitivities to follow Vital signs stable Antibiotics as below 08/20/2024: Continue IV Rocephin while awaiting culture sensitivities. VSS. WBC 17 today. Echo ordered, will likely not be performed until Wednesday. Repeat blood cultures tomorrow 08/21/2024: Leukocytosis has resolved. Guideline recommendations for streptococcal bacteremia from known pulmonary source are for total 5 to 7-day treatment. She will continue IV Rocephin for now. Repeat blood cultures have been ordered 08/22/2024: Echocardiogram has been performed, awaiting read. Repeat blood cultures with no growth after 1 day. Today is day 5 of Rocephin. Continuing Rocephin for now, will go ahead and finish out 7-day course. She will need to remain inpatient until we have repeat blood cultures confirming no growth and an echocardiogram with no concern for endocarditis Qualifiers: Sepsis acute organ dysfunction status: with acute organ dysfunction S epsis type: sepsis due to unspecified organism Severe sepsis acute organ dysfunction type: unspecified (2) Acute hypoxic respiratory failure: Impression: Secondary to pneumonia Continue RT lung inflation protocol and secretion clearance protocol 08/20/2024: Continues to require 3 L O2. Overall appearing improved. Manage pneumonia as below 08/21/2024: On room air 08/22/2024: Remains stable on room air (3) Pneumonia: Impression: Continue course of Rocephin and azithromycin for community-acquired pneumonia Azithromycin for total 3 days Will need extended course of beta-lactam therapy, maintaining Rocephin until blood cultures further result 08/20/2024: Continue Rocephin. Tomorrow will be last day of azithromycin 08/21/2024: Continuing Rocephin. She is completed a course of azithromycin 08/22/2024: She has finished Rocephin sufficient to cover for pneumonia, she is continuing Rocephin for bacteremia Qualifiers: Laterality: right Lung location: middle lobe of lung Pneumonia type: d ue to unspecified organism Qualified Code(s): J18.9 - Pneumonia, unspecified organism (4) Electrolyte abnormality: Impression: Potassium 3.2 today. I have ordered 40 mill equivalent p.o. potassium. Continue daily BMP (5) Abdominal pain: Impression: Resolved, secondary to significant coughing Qualifiers: Abdominal location: generalized Qualified Code(s): R10.84 - Generalized abdominal pain
--- NOTE | 2024-08-22 17:01 | ECHO Report ---
Version: 1 Study ID: [id number] [id number] Adult Echocardiogram Report Name: ALEXANDER TOMLINSON Study Date: 08/22/2024, 10: 33 AM BP: 136 / 72 mmHg Patient Location: [facility] [place]2213^01 HR: 85 bpm : 1945 (MM/DD/YYYY) Gender: Female Height: 62 in Age: 79 Years Weight: 148.812 lb Reason For Study: Eval for endocarditis History: Sepsis secondary to pneumonia - concern for endocarditis Procedure: A complete two-dimensional transthoracic echocardiogram was performed (2D, M- mode, Doppler and color flow Doppler). Indication: Evaluate for endocarditis. This study was focused secondary to limited cardiac windows. The patient was uncomfortable and uncooperative throughout the procedure, causing significant difficulties in image acquisition. The underlying rhythm was sinus. Interpretation Summary Global left ventricular systolic function is normal. The visual left ventricular ejection fraction is estimated at 65 to 70%. The right ventricle is normal in size and function. No concerning cardiac valve disease is noted, no e/o vegetations. Left Ventricle: The left ventricle is normal in size. There is normal left ventricular wall thickness. Proximal septal thickening is noted. Echo findings are not consistent with left ventricular outflow tract obstruction. Global left ventricular systolic function is normal. The visual left ventricular ejection fraction is estimated at 65 to 70%. No regional wall motion abnormalities are present. The overall diastolic pattern is most consistent with impaired left ventricular relaxation with low to normal filling pressures. Right Ventricle: The right ventricle is normal in size and function. Aortic Valve: The aortic valve is trileaflet. The aortic valve is mildly thickened. Aortic valve sclerosis is present without stenosis. Cannot exclude aortic valve vegetation. No aortic regurgitation is present. Mitral Valve: The mitral valve leaflets appear thickened, but with normal motion. Mild mitral annular calcification is present. Cannot exclude mitral valve vegetation. No evidence of mitral stenosis is seen. There is trace mitral regurgitation. Tricuspid Valve: The tricuspid valve is normal in structure and function. Cannot exclude tricuspid valve vegetation. Trace tricuspid regurgitation present. Pulmonic Valve: The pulmonic valve is normal in structure and function. Cannot exclude pulmonic valve vegetation. Trace pulmonic valvular regurgitation is present. Left Atrium: The left atrium is mildly dilated. The left atrial volume indexed to body surface area is 37 ml/m2. This refers to the maximal volume measured prior to mitral valve opening. Right Atrium: Right atrial size is normal. The inferior vena cava is mildly dilated with a diameter of greater than 2.1cm, but collapses >50% with sniff (estimated right atrial pressure 5-10mmHg.). Atrial Septum: The interatrial septum is not well seen. Interatrial shunt cannot be excluded. Aorta: The ascending aorta is not well seen. The sinuses of Valsalva are not well visualized. Pulmonary Artery: Pulmonary artery systolic pressure could not be estimated due to an insufficient tricuspid regurgitant jet. Pericardium/Pleural Space: There is no pericardial effusion. CPT Codes: 68932/[id number]: Transthoracic Echo with Spectral and Color Doppler. Doppler Measurements & Calculations Ao max P.3 mmHg Ao V2 max: 125.4 cm/sec LV V1 max: 117.1 cm/sec LV V1 max P.5 mmHg MV A max fide: 87.2 cm/sec MV dec time: 0.29 sec MV DVI-pr: 0.62 MV E max fide: 54.1 cm/sec PA max P.63 mmHg PA V2 max: 63.8 cm/sec RAP systole: 10.0 mmHg TR max P.8 mmHg TR max fide: 164.5 cm/sec MMode/2D Measurements & Calculations EDV(MOD-sp4): 44.0 ml EF (est.): 63.8 % ESV(MOD-sp4): 14.5 ml ESV(sp4-el): 59.8 ml Heart Rate: 85.0 BPM Height (metric): 157.5 cm IVSd: 0.97 cm LA A4C-A/L: 19.6 cm² LA dimension: 5.6 cm LA ESV-A/L: 52.4 ml LAV(MOD-sp2): 60.1 ml LAV(MOD-sp4): 63.6 ml LVIDd: 3.6 cm LVIDs: 2.5 cm LVLd ap4: 7.6 cm LVLs ap4: 6.1 cm LVPWd: 0.90 cm Systolic Pressure: 136.0 mmHg TAPSE: 1.82 cm Other Measurements & Calculations Ao V2 max: 125.4 cm/sec BMI: 27.2 kilograms/m² BSA: 1.69 m² BSA([facility]): 1.74 m² Diastolic Pressure: 72.0 mmHg EDV(MOD-sp4): 44.0 ml EDV(Teich): 53.3 ml EF (est.): 63.8 % EF(MOD-sp4): 67.0 % EF(Teich): 56.1 % ESV(MOD-sp4): 14.5 ml ESV(sp4-el): 59.8 ml ESV(Teich): 23.4 ml FS: 28.6 % Heart Rate: 85.0 BPM Height (metric): 157.5 cm IVSd: 0.97 cm LA A4C-A/L: 19.6 cm² LA dimension: 5.6 cm LA ESV-A/L: 52.4 ml LAV(MOD-sp2): 60.1 ml LAV(MOD-sp4): 63.6 ml LV V1 max: 117.1 cm/sec LVIDd: 3.6 cm LVIDs: 2.5 cm LVLd ap4: 7.6 cm LVLs ap4: 6.1 cm LVPWd: 0.90 cm MV A max fide: 87.2 cm/sec MV dec time: 0.29 sec MV DVI-pr: 0.62 MV E max fide: 54.1 cm/sec MV E/A: 0.62 PA max P.63 mmHg PA V2 max: 63.8 cm/sec RAP systole: 10.0 mmHg RVSP(TR): 20.8 mmHg SV(MOD-sp4): 29.4 ml Systolic Pressure: 136.0 mmHg TAPSE: 1.82 cm TR max P.8 mmHg TR max fide: 164.5 cm/sec TV max P.8 mmHg Weight (metric): 67.5 kg Lat E/e': 7.1 Med E/e': 10.6 EDV(MOD-sp2): 48.6 ml EF Mod BP: 63.5 % ESV(MOD-sp2): 19.2 ml EF(MOD-sp2): 60.6 % EF(sp-el): 56.2 % Lacey Solano Gopal 08/22/2024, 5: 01 PM Ordering Physician: Gabriel Araiza Referring Physician: Gee Briggs Performed By: Stacy Amador RDCS
[2024-08-23 04:34] LABS: BASOPHILS % (AUTO) 0.1 %; EOSINOPHILS % (AUTO) 1.9 %; HCT - HEMATOCRIT 29.9 % (37.0-47.0); HGB - HEMOGLOBIN 9.5 g/dL (12.0-16.0); LYMPHOCYTES % (AUTO) 33.4 %; MEAN CORPUSCULAR HGB CONC 31.8 g/dL (32.0-36.0); MEAN CORPUSCULAR VOLUME 94.3 fL (81.0-99.0); MEAN PLATELET VOLUME 9.5 fL (7.9-10.8); MONOCYTES % (AUTO) 12.3 %; NEUTROPHILS % (AUTO) 50.1 %; PLT - PLATELET COUNT 584 10^3/uL (130-450); RED BLOOD COUNT 3.17 10^6/uL (4.20-5.40); RED CELL DISTRIBUTION WIDTH 17.6 % (12.0-15.0)
[2024-08-23 04:40] LABS: ABNORMAL LYMPHS % (MANUAL) 0 %
[2024-08-23 04:48] LABS: CALCIUM 8.3 mg/dL (8.5-10.3); CREATININE 0.4 mg/dL (0.6-1.3); POTASSIUM 3.4 mmol/L (3.5-4.5)
[2024-08-23 05:14] LABS: BAND NEUTROPHILS % (MANUAL) 3 %; EOSINOPHILS # (MANUAL) 0.3 10^3/uL (0-0.7); LYMPHOCYTES # (MANUAL) 3.3 10^3/uL (1.5-3.5); LYMPHOCYTES % (MANUAL) 37 %; MONOCYTES # (MANUAL) 1.8 10^3/uL (0.0-1.0); NEUTROPHILS # (MANUAL) 3.6 10^3/uL (1.5-6.6); NUCLEATED RBC (MANUAL) 1 %
[2024-08-23 05:22] LABS: DIFFERENTIAL COMMENT MANUAL DIFFERENTIAL; PLATELET ESTIMATE, MANUAL INCREASED (>450,000) (NORMAL)
[2024-08-23] MEDS: polyethylene glycoL 3350 17 GM PACKET PO SCH (09:14)
--- NOTE | 2024-08-23 12:55 | PROVIDER PROGRESS NOTE ---
Subjective Prog Note Date Prog Note Date: 08/23/24 Subjective Pt reports feeling: No change Current Medications Current Medications Current Medications: Current Medications Generic Name Dose Route Start Last Admin Trade Name Freq PRN Reason Stop Dose Admin Acetaminophen 650 mg 08/18/24 21:58 08/23/24 07:01 Acetaminophen 325 Mg Tablet PO 650 mg Q4HR PRN Administration Pain 1 to 4, or Fever Ceftriaxone Sodium 2 gm 08/22/24 09:00 08/23/24 09:14 Ceftriaxone 2 Gm Vial IVP 2 gm DAILY CHRISTIN Administration Enoxaparin Sodium 40 mg 08/19/24 09:00 08/23/24 09:14 Enoxaparin 40 Mg/0.4 Ml Syringe SUBQ 40 mg DAILY CHRISTIN Administration Nystatin 5 ml 08/19/24 21:00 08/23/24 12:40 Nystatin 666771 Units/5 Ml Udc PO 5 ml QID CHRISTIN Administration Ondansetron HCl 4 mg 08/18/24 21:58 Ondansetron Odt 4 Mg Tablet TL Q6HR PRN Nausea / Vomiting Ondansetron HCl 4 mg 08/18/24 21:58 Ondansetron 4 Mg/2 Ml Vial IVP Q6HR PRN Nausea / Vomiting Polyethylene Glycol 17 gm 08/23/24 09:00 08/23/24 09:14 Polyethylene Glycol 3350 17 Gm Packet PO Not Given DAILY CHRISTIN Sodium Chloride 10 ml 08/18/24 21:58 08/21/24 00:51 Sodium Chloride Flush 0.9% 10 Ml Syringe IVP 10 ml PRN PRN Administration NEEDED PER PROVIDER ORDERS Sodium Chloride 10 ml 08/19/24 01:00 08/23/24 09:15 Sodium Chloride Flush 0.9% 10 Ml Syringe IVP 10 ml 0100,0900,1700 CHRISTIN Administration Throat Lozenges 1 lozenge 08/19/24 14:31 08/23/24 00:01 Benzocaine/Menthol Lozenge MM 1 lozenge Q2HR PRN Administration Mouth Sore Pain Objective Vital Signs/Intake & Output Reviewed Vital Signs: Yes Vital Signs: Vital Signs x48h Temp Pulse Resp BP Pulse Ox 08/23/24 07:55 36.7 C 80 18 143/76 H 96 Intake & Output: Intake & Output 08/20/24 08/21/24 08/22/24 08/23/24 23:59 23:59 23:59 23:59 Intake Total 598 / 598 630 / 630 1420 / 1420 926 / 926 Output Total 500 / 500 2500 / 2500 750 / 750 350 / 350 Balance 98 / 98 -1870 / -1870 670 / 670 576 / 576 Objective General Appearance: positive No acute distress and Alert Eyes Bilateral: positive Normal inspection and PERRL ENT: positive ENT inspection nml Neck: positive Nml inspection Respiratory: positive Chest non-tender and No respiratory distress Cardiovascular: positive Regular rate & rhythm Abdomen: positive Non-tender Back: positive Nml inspection Skin: positive Color nml Extremities: positive Non-tender Neurologic/Psychiatric: positive Oriented x3 Lab Results 08/23/24 04:11 08/23/24 04:11 Other Labs: Lab Results x24hrs 08/23/24 08/23/24 08/23/24 Range/Units 04:11 04:11 04:11 WBC (4.8-10.8) x10^3/uL RBC (4.20-5.40) 10^6/uL Hgb (12.0-16.0) g/dL Hct (37.0-47.0) % MCV (81.0-99.0) fL MCH (27.0-31.0) pg MCHC (32.0-36.0) g/dL RDW (12.0-15.0) % Plt Count (130-450) 10^3/uL MPV (7.9-10.8) fL Neut # (Auto) Lymph # (Auto) [place] # (Auto) Eos # (Auto) Baso # (Auto) Absolute Nucleated RBC Total Counted Band Neuts % (Manual) (0 - 10) % Abnorm Lymph % (Manual) % Nucleated RBC % Neutrophils # (Manual) (1.5-6.6) 10^3/uL Lymphocytes # (Manual) (1.5-3.5) 10^3/uL Monocytes # (Manual) (0.0-1.0) 10^3/uL Eosinophils # (Manual) (0-0.7) 10^3/uL Basophils # (Manual) (0-0.1) 10^3/uL Nucleated RBCs % Differential Comment Platelet Estimate (NORMAL) RBC Morph Micro Appear 1+ POLYCHROMASIA 1+ TARGET CELLS 1+ HYPOCHROMASIA (NORMAL) Sodium 132 L (135-145) mmol/L Potassium 3.4 L (3.5-4.5) mmol/L Chloride 100 L (101-111) mmol/L Carbon Dioxide 25 (21-32) mmol/L Anion Gap 7.0 (6-13) BUN 11 (6-20) mg/dL Creatinine 0.4 L (0.6-1.3) mg/dL Estimated GFR (MDRD) 154 (>89) Glucose 97 (74-104) mg/dL Calcium 8.3 L (8.5-10.3) mg/dL 08/23/24 Range/Units 04:11 WBC 9.0 (4.8-10.8) x10^3/uL RBC 3.17 L (4.20-5.40) 10^6/uL Hgb 9.5 L (12.0-16.0) g/dL Hct 29.9 L (37.0-47.0) % MCV 94.3 (81.0-99.0) fL MCH 30.0 (27.0-31.0) pg MCHC 31.8 L (32.0-36.0) g/dL RDW 17.6 H (12.0-15.0) % Plt Count 584 H (130-450) 10^3/uL MPV 9.5 (7.9-10.8) fL Neut # (Auto) Not Reportable Lymph # (Auto) Not Reportable [place] # (Auto) Not Reportable Eos # (Auto) Not Reportable Baso # (Auto) Not Reportable Absolute Nucleated RBC Not Reportable Total Counted 100 Band Neuts % (Manual) 3 (0 - 10) % Abnorm Lymph % (Manual) 0 % Nucleated RBC % Not Reportable Neutrophils # (Manual) 3.6 (1.5-6.6) 10^3/uL Lymphocytes # (Manual) 3.3 (1.5-3.5) 10^3/uL Monocytes # (Manual) 1.8 H (0.0-1.0) 10^3/uL Eosinophils # (Manual) 0.3 (0-0.7) 10^3/uL Basophils # (Manual) 0.0 (0-0.1) 10^3/uL Nucleated RBCs 1 % Differential Comment MANUAL DIFFERENTIAL Platelet Estimate INCREASED (>450,000) (NORMAL) RBC Morph Micro Appear 1+ ROULEAUX (NORMAL) Sodium (135-145) mmol/L Potassium (3.5-4.5) mmol/L Chloride (101-111) mmol/L Carbon Dioxide (21-32) mmol/L Anion Gap (6-13) BUN (6-20) mg/dL Creatinine (0.6-1.3) mg/dL Estimated GFR (MDRD) (>89) Glucose (74-104) mg/dL Calcium (8.5-10.3) mg/dL Sepsis Event Note (H) Evaluation Possible source of Sepsis: positive Pulmonary, GI tract/intra-abdominal and Genitourinary Assessment/Plan Problem List (1) Sepsis: Impression: Secondary to pneumonia Received 2 L fluid bolus UA with micro concerning for UTI, urine culture pending WBC improved to 21.7 today Lactate improved to 1.5 after 2 L bolus Blood culture PCR positive for streptococcal infection Check echo Repeat blood cultures after 48 hours of antibiotics Sensitivities to follow Vital signs stable Antibiotics as below 08/20/2024: Continue IV Rocephin while awaiting culture sensitivities. VSS. WBC 17 today. Echo ordered, will likely not be performed until Wednesday. Repeat blood cultures tomorrow 08/21/2024: Leukocytosis has resolved. Guideline recommendations for streptococcal bacteremia from known pulmonary source are for total 5 to 7-day treatment. She will continue IV Rocephin for now. Repeat blood cultures have been ordered 08/22/2024: Echocardiogram has been performed, awaiting read. Repeat blood cultures with no growth after 1 day. Today is day 5 of Rocephin. Continuing Rocephin for now, will go ahead and finish out 7-day course. She will need to remain inpatient until we have repeat blood cultures confirming no growth and an echocardiogram with no concern for endocarditis 08/23/2024: Echocardiogram with no concern for endocarditis. Repeat blood cultures with no growth after 2 days. Today is day 6 of Rocephin. Anticipate medical readiness for discharge tomorrow if blood cultures remain clear, after which point she will have received a 7-day course of Rocephin and will need no more antibiotics Qualifiers: Sepsis acute organ dysfunction status: with acute organ dysfunction S epsis type: sepsis due to unspecified organism Severe sepsis acute organ dysfunction type: unspecified (2) Acute hypoxic respiratory failure: Impression: Secondary to pneumonia Continue RT lung inflation protocol and secretion clearance protocol Resolved (3) Pneumonia: Impression: Has completed course of Rocephin and azithromycin for community-acquired pneumonia Resolved Qualifiers: Laterality: right Lung location: middle lobe of lung Pneumonia type: d ue to unspecified organism Qualified Code(s): J18.9 - Pneumonia, unspecified organism (4) Electrolyte abnormality: Impression: I have started her on daily magnesium oxide 400 mg p.o. Potassium 3.4 today. I have ordered another 40 mEq potassium p.o. Continue daily BMP (5) Abdominal pain: Impression: Resolved, secondary to significant coughing Qualifiers: Abdominal location: generalized Qualified Code(s): R10.84 - Generalized abdominal pain
[2024-08-23] MEDS: POTASSIUM CHLORIDE 20 MEQ TABLET PO ONE (14:32)
[2024-08-23] MEDS: MAGNESIUM OXIDE 400 MG TABLET PO SCH (14:32)
--- NOTE | 2024-08-23 20:03 | Discharge Summary ---
Discharge Summary Admit Date: 08/18/24 Discharge Date: 08/24/24 Discharging Provider: Gabriel Araiza Primary Care Provider: Amairani Bland Code Status: Attempt Resuscitation DIAGNOSES Admission Diagnoses: Sepsis Acute hypoxemic respiratory failure Pneumonia Abdominal pain Electrolyte abnormality Discharge Diagnoses with Status of Each Condition: Sepsisresolved Acute hypoxemic respiratory failureresolved Pneumoniaresolved Abdominal painresolved Electrolyte abnormality Resolved HPI History of Present Illness: 79-year-old female who had a cough for a week which is improving came in with nausea. She has some abdominal pain that is left over from her coughing. She also reports diarrhea. She reported EMS reports she was febrile and route. In the ER, chest x-ray showed right middle lobe pneumonia, CT chest showed right upper lobe pneumonia. No acute abnormalities on abdomen/pelvis. She was originally worked up for sepsis, so she received Zosyn empirically. After radiology reports, she was given a dose of azithromycin for pneumonia coverage. Given her tachycardia, fevers, white blood cell count of 24.9, hospitalist was contacted for admission for pneumonia causing an acute hypoxic respiratory failure and sepsis HOSPITAL COURSE Hospital Course: Patient was brought into the hospital and started on Rocephin and azithromycin. Blood cultures were positive for Streptococcus. She completed a 7-day course of Rocephin for this as well as a 3-day course of azithromycin. Given that it is streptococcal bacteremia from unknown pneumonia source, guidelines direct that a 7-day course of antibiotics is sufficient. Repeat blood cultures are no growth to date. She is being discharged home ALLERGIES Allergies Allergy/AdvReac Type Severity Reaction Status Date / Time acetaminophen (From Percocet) AdvReac Nausea Verified 08/18/24 18:15 oxycodone (From Percocet) AdvReac Nausea Verified 08/18/24 18:15 MEDICATIONS Ambulatory Orders Medication Instructions Recorded Confirmed ascorbic acid (vitamin C) 500 mg 500 mg PO DAILY 08/1908/19/24 chewable tablet (Acerola C) cholecalciferol (vitamin D3) 50 50 mcg PO DAILY 08/19/24 mcg (2,000 unit) capsule nystatin 100,000 unit/mL oral 5 ml PO QID 7 days #140 mL 08/23/24 suspension PHYSICAL EXAM AT DISCHARGE Vital Signs: Vital Signs x48h Temp Pulse Resp BP Pulse Ox 08/24/24 13:33 36.5 C 98 24 135/76 H 92 08/24/24 08:31 36.7 C 88 20 147/80 H 91 L General Appearance: positive No acute distress and Alert Eyes Bilateral: positive Normal inspection ENT: positive ENT inspection nml Neck: positive Nml inspection Respiratory: positive Chest non-tender Cardiovascular: positive Regular rate & rhythm Peripheral Pulses: positive 2+ Abdomen: positive Non-tender Skin: positive Color nml Extremities: positive Non-tender Neurologic/Psychiatric: positive Oriented x3 LABS 08/23/24 04:11 08/23/24 04:11 SEPSIS Possible source of Sepsis: Pulmonary, GI tract/intra-abdominal and Genitourinary FOLLOW UP Follow Up: With PCP TIME SPENT Time Spent in Discharge (Minutes): 40 Discharge Plan Discharge Patient Disposition: Home, Self Care Condition: Serious Medically Cleared Date:: 08/24/24 Prescriptions: New nystatin 100,000 unit/mL Suspension 5 ml PO QID 7 Days Qty: 140 0RF Continued cholecalciferol (vitamin D3) 50 mcg (2,000 unit) capsule 50 mcg PO DAILY ascorbic acid (vitamin C) [Acerola C] 500 mg tablet,chewable 500 mg PO DAILY Activity Restrictions: No Restrictions Diet: Regular Health Concerns: You came into the hospital with a cough and abdominal pain. Your abdominal pain was from the coughing. You were found to have a pneumonia, and we found out that the bacteria that was causing your pneumonia had also gone into your bloodstream. You have finished a 7-day course of IV antibiotics for this. You developed thrush, which is a complication of antibiotic usage. I am writing you a prescription for nystatin that I would like for you to take as directed until your symptoms of thrush are gone. This will also naturally resolve you are no longer on antibiotics. Please work on remaining active and keeping up a robust diet. Return to work when you feel comfortable. Please follow-up with your primary care provider for further management Print Language: Lithuanian Patient Instructions: Thrush Oral Stand Alone Forms: PCP List Follow-up Care: Amairani Bland PA-C [Primary Care Provider] -
[2024-08-24 13:35] VITALS: BP 135/76; TEMP 97.7; O2SAT 92
== END 2024-08-24 15:45 | disposition home or self-care (01) | DRG 871 ==
LOC: ED 18:07 → MS2 20:28
PROVIDERS: ADMIT Nurse Practitioner Acute Care; ATTEND Nurse Practitioner Acute Care
DX: R10.84 Generalized abdominal pain; R65.21 Severe sepsis with septic shock; Y92.230 Patient room in hospital as the place of occurrence of the external cause; J96.01 Acute respiratory failure with hypoxia; R19.7 Diarrhea, unspecified; T36.95XA Adverse effect of unspecified systemic antibiotic, initial encounter; A40.9 Streptococcal sepsis, unspecified; R65.20 Severe sepsis without septic shock; B37.9 Candidiasis, unspecified; A41.9 Sepsis, unspecified organism; J18.9 Pneumonia, unspecified organism; E87.8 Other disorders of electrolyte and fluid balance, not elsewhere classified

== ENCOUNTER 2024-11-18 19:50 | Observation (INO) ==
--- OUTSIDE RECORDS SUMMARY | 2024-11-18 20:08 | EXTERNAL MEDICAL SUMMARY RPT | Continuity of Care Document ---
Author Organization [facility] Address [address] [place] [id number] Phone Problems date description facility 2024-08-22 09:02 Sepsis, unspecified organism [facility] 2024-08-22 09:02 Other disorders of e lectrolyte and fluid balance, not elsewhere classified [facility] 2024-08-22 09:02 Pneumonia, unspecified organism [facility] 2024-08-22 09:02 Acute respiratory failure with hypoxia [facility] 2024-08-22 09:02 Generalized abdominal pain On license of [facility] 2024-08-23 19:58 Sepsis, unspecified organism [facility] 2024-08-23 19:58 Other disorders of e lectrolyte and fluid balance, not elsewhere classified [facility] 2024-08-23 19:58 Pneumonia, unspecified organism [facility] 2024-08-23 19:58 Acute respiratory failure with hypoxia [facility] 2024-08-23 19:58 Generalized abdominal pain On license of [facility] 2024-08-23 20:00 Sepsis, unspecified organism [facility] 2024-08-23 20:00 Other disorders of e lectrolyte and fluid balance, not elsewhere classified [facility] 2024-08-23 20:00 Pneumonia, unspecified organism [facility] 2024-08-23 20:00 Acute respiratory failure with hypoxia [facility] 2024-08-23 20:00 Generalized abdominal pain On license of [facility] 2024-08-24 05:57 Sepsis, unspecified organism [facility] 2024-08-24 05:57 Other disorders of e lectrolyte and fluid balance, not elsewhere classified [facility] 2024-08-24 05:57 Pneumonia, unspecified organism [facility] 2024-08-24 05:57 Acute respiratory failure with hypoxia [facility] 2024-08-24 05:57 Pain in thoracic spine [facility] 2024-08-24 05:57 Right upper quadrant pain [facility] 2024-08-24 05:57 Generalized abdominal pain On license of [facility] 2024-08-24 05:57 Nausea [facility] 2024-08-24 05:57 Nausea with vomiting, unspecifi ed [facility] 2024-08-24 05:57 Diarrhea, unspecified [facility] 2024-08-[facility] 05:57 Dizziness and giddiness [facility] 2024-08-24 10:59 Nausea with vomiting, unspecifi ed [facility] 2024-08-24 12:24 Sepsis, unspecified organism [facility] 2024-08-24 12:24 Other disorders of e lectrolyte and fluid balance, not elsewhere classified [facility] 2024-08-24 12:24 Pneumonia, unspecified organism [facility] 2024-08-24 12:24 Acute respiratory failure with hypoxia [facility] 2024-08-24 12:24 Generalized abdominal pain On license of [facility] 2024-08-24 16:07 Sepsis, unspecified organism [facility] 2024-08-24 16:07 Other disorders of e lectrolyte and fluid balance, not elsewhere classified [facility] 2024-08-24 16:07 Pneumonia, unspecified organism [facility] 2024-08-24 16:07 Acute respiratory failure with hypoxia [facility] 2024-08-24 16:07 Generalized abdominal pain On license of [facility] 2024-08-25 15:20 Sepsis, unspecified organism [facility] 2024-08-25 15:20 Other disorders of e lectrolyte and fluid balance, not elsewhere classified [facility] 2024-08-25 15:20 Pneumonia, unspecified organism [facility] 2024-08-25 15:20 Acute respiratory failure with hypoxia [facility] 2024-08-25 15:20 Generalized abdominal pain On license of [facility] 2024-08-25 15:20 Nausea [facility] 2024-08-25 15:20 Diarrhea, unspecified [facility] 2024-08-25 15:20 Fever, unspecified [facility] 2024-09-04 09:42 Pneumonia, unspecified organism [facility] 2024-10-04 10:54 Sepsis, unspecified organism [facility] 2024-10-04 10:54 Other disorders of e lectrolyte and fluid balance, not elsewhere classified [facility] 2024-10-04 10:54 Pneumonia, unspecified organism [facility] 2024-10-04 10:54 Acute respiratory failure with hypoxia [facility] 2024-10-04 10:54 Pain in thoracic spine [facility] 2024-10-04 10:54 Right upper quadrant pain [facility] 2024-10-04 10:54 Generalized abdominal pain On license of [facility] 2024-10-04 10:54 Nausea [facility] 2024-10-04 10:54 Nausea with vomiting, unspecifi ed [facility] 2024-10-04 10:54 Diarrhea, unspecified [facility] 2024-10-04 10:54 Dizziness and giddiness [facility] 2024-10-04 10:54 Fever, unspecified [facility] 2024-11-08 10:00 Pneumonia, unspecified organism [facility] Results/Labs test date facility value unit notes Result panel 1 CULTURE, BLOOD #1 2024-08-18 18:32 [facility] (missing) (missing) (missing) CULTURE, BLOOD #1 2024-08-18 18:32 [facility] 08-18-2024/[id number] (missing) (missing) CULTURE, BLOOD #1 2024-08-18 18:32 [facility] 08/18/24 1832 BY [facility]08/18/24 1832 BY [facility] (missing) (missing) CULTURE, BLOOD #1 2024-08-18 18:32 [facility] AERAEROBIC BOTTLE (missing) (missing) CULTURE, BLOOD #1 2024-08-18 18:32 [facility] ANAANAEROBIC BOTTLE (missing) (missing) CULTURE, BLOOD #1 2024-08-18 18:32 [facility] CC.6COLONY COUNT (missing) (missing) CULTURE, BLOOD #1 2024-08-18 18:32 [facility] [id number] BY/DATE/TIME (missing) (missing) CULTURE, BLOOD #1 2024-08-18 18:32 [facility] COLLECTEDCOLLECTION BY/DATE/TIME (missing) (missing) CULTURE, BLOOD #1 2024-08-18 18:[address] [place] [address] CULTURE IN PROGRESS. RESULTS TO FOLLOW. (missing) (missing) CULTURE, BLOOD #1 2024-08-18 18:32 [facility] GPCPCHGRAM POSITIVE COCCI IN PAIRS/CHAINS (missing) (missing) CULTURE, BLOOD #1 2024-08-18 18:32 [facility] [id number] STAIN (missing) (missing) CULTURE, BLOOD #1 2024-08-18 18:[address] [place] [address] [id number] STAIN (missing) (missing) CULTURE, BLOOD #1 2024-08-18 18:[address] [place] [address] LACLEFT ANTECUBITAL (missing) (missing) CULTURE, BLOOD #1 2024-08-18 18:[address] [place] [address] PICPRESENT IN CULTURE (missing) (missing) CULTURE, BLOOD #1 2024-08-18 18:[address] [place] [address] POS.1POSITIVE BLOOD CULTURE (missing) (missing) CULTURE, BLOOD #1 2024-08-18 18:[address] [place] [address] POSPOSITIVE BLOOD CULTURE (missing) (missing) CULTURE, BLOOD #1 2024-08-18 18:[address] [place] [address] SEE BLOOD CULTURE #2, [id number], FOR IDENTIFICATION AND (missing) (missing) CULTURE, BLOOD #1 2024-08-18 18:[address] [place] [address] SEE BLOOD CULTURE #2, [id number], FOR SUSCEPTIBILITIES ON (missing) (missing) CULTURE, BLOOD #1 2024-08-18 18:[address] [place] [address] SITE.1COLLECTION SITE (missing) (missing) CULTURE, BLOOD #1 2024-08-18 18:[address] [place] [address] SITECOLLECTION SITE (missing) (missing) CULTURE, BLOOD #1 2024-08-18 18:[address] [place] [address] STREPTOCOCCUS PNEUMONIAE. (missing) (missing) O:STRPNE 2024-08-18 18:32 [facility] STRPNESTREPTOCOCCUS PNEUMONIAESTREPTOCOCCUS PNEUMONIAE (missing) (missing) CULTURE, BLOOD #1 2024-08-18 18:32 [facility] SUSCEPTIBILITIES. (missing) (missing) Result panel 2 CULTURE, BLOOD #2 2024-08-18 18:36 [facility] (missing) (missing) (missing) BENZYLPENICILLIN 2024-08-18 18:36 [facility] <=0.06 (missing) (missing) TIGECYCLINE 2024-08-18 18:36 [facility] <=0.06 (missing) (missing) CEFTRIAXONE 2024-08-18 18:36 [facility] <=0.12 (missing) (missing) ERYTHROMYCIN 2024-08-18 18:36 [facility] <=0.12 (missing) (missing) CLINDAMYCIN 2024-08-18 18:36 [facility] <=0.25 (missing) (missing) TETRACYCLINE 2024-08-18 18:36 [facility] <=0.25 (missing) (missing) TRIMETHOPRIM/SULFAM ETHOXAZOLE 2024-08-18 18:36 [facility] <=10 (missing) (missing) LINEZOLID 2024-08-18 18:36 [facility] <=2 (missing) (missing) MOXIFLOXACIN 2024-08-18 18:36 [facility] 0.12 (missing) (missing) CULTURE, BLOOD #2 2024-08-18 18:36 [facility] 08-18-24/[id number] (missing) (missing) LEVOFLOXACIN 2024-08-18 18:36 [facility] 1 (missing) (missing) CULTURE, BLOOD #2 2024-08-18 18:36 [facility] 08/18/24 1836 BY [id number] BY [facility] (missing) (missing) CULTURE, BLOOD #2 2024-08-18 18[facility] AERA[facility]LE (missing) (missing) CULTURE, BLOOD #2 2024-08-18 18:36 [facility] ANAANAEROBIC BOTTLE (missing) (missing) CULTURE, BLOOD #2 2024-08-18 18:36 [facility] Blood culture identification by PCR added (missing) (missing) CULTURE, BLOOD #2 2024-08-18 18:36 [facility] CC.6COLONY COUNT (missing) (missing) CULTURE, BLOOD #2 2024-08-18 18:36 [facility] [id number] BY/DATE/TIME (missing) (missing) CULTURE, BLOOD #2 2024-08-18 18:36 [facility] COLLECTEDCOLLECTION BY/DATE/TIME (missing) (missing) CULTURE, BLOOD #2 2024-08-18 18:36 [facility] CULTURE IN PROGRESS. RESULTS TO FOLLOW. (missing) (missing) CULTURE, BLOOD #2 2024-08-18 18:36 [facility] GPCGRAM POSITIVE COCCI TO BE FURTHER IDENTIFIED (missing) (missing) CULTURE, BLOOD #2 2024-08-18 18:36 [facility] GPCPCHGRAM POSITIVE COCCI IN PAIRS/CHAINS (missing) (missing) CULTURE, BLOOD #2 2024-08-18 18:36 [facility] [id number] STAIN (missing) (missing) CULTURE, BLOOD #2 2024-08-18 18:36 [facility] [id number] STAIN (missing) (missing) CULTURE, BLOOD #2 2024-08-18 18:36 [facility] IDMIC.1ORG 1 ID/GABRIELLE COM* (missing) (missing) CULTURE, BLOOD #2 2024-08-18 18:36 [facility] ORG.1PRELIM ORG ID* (missing) (missing) CULTURE, BLOOD #2 2024-08-18 18:36 [facility] PICPRESENT IN CULTURE (missing) (missing) CULTURE, BLOOD #2 2024-08-18 18:36 [facility] POS.1POSITIVE BLOOD CULTURE (missing) (missing) CULTURE, BLOOD #2 2024-08-18 18:36 [facility] POSPOSITIVE BLOOD CULTURE (missing) (missing) CULTURE, BLOOD #2 2024-08-18 18:36 [facility] RACRIGHT ANTECUBITAL (missing) (missing) CULTURE, BLOOD #2 2024-08-18 18:36 [facility] SITE.1COLLECTION SITE (missing) (missing) CULTURE, BLOOD #2 2024-08-18 18:36 [facility] SITECOLLECTION SITE (missing) (missing) O:STRPNE 2024-08-18 18:36 [facility] STRPNESTREPTOCOCCUS PNEUMONIAESTREPTOCOCCUS PNEUMONIAE (missing) (missing) CULTURE, BLOOD #2 2024-08-18 18:36 [facility] YIDENTIFICATION AND SENSITIVITIES TO FOLLOW (missing) (missing) Result panel 3 CUL, URINE 2024-08-18 22:35 [facility] [employer] NGNo growth (miss ing) (missing) Result panel 4 NUCLEATED RED BLOOD CELLS AUTO 2024-08-20 04:07 [facility] 0.0 /100wbc (missing) BASOPHILS # (AUTO) 2024-08-20 04:07 [facility] 0.0 10 3/ul (missing) EOSINOPHILS # (AUTO) 2024-08-20 04:07 [facility] 0.0 10 3/ul (missing) NRBC ABSOLUTE COUNT (AUTO) 2024-08-20 04:07 [facility] 0.00 x10 3/ul (missing) CREATININE 2024-08-20 04:07 [facility] 0.5 mg/dl As of September 2022 testing method has changed, this may include reference ranges. MONOCYTES # (AUTO) 2024-08-20 04:07 [facility] 0.9 10 3/ul (missing) LYMPHOCYTES # (AUTO) 2024-08-20 04:07 [facility] 1.9 10 3/ul (missing) CHLORIDE 2024-08-20 04:07 [facility] 104 mmol/l As of September 2022 testing method has changed, this may include reference ranges. GFR - MDRD 2024-08-20 04:07 [facility] 119 (in g) Social History date description facility
[2024-11-18 20:36] LABS: OCCULT BLOOD,URINE LARGE (NEGATIVE)
[2024-11-18 20:37] LABS: GLUCOSE, URINE (UA) NEGATIVE (NEGATIVE); KETONES,URINE (UA) NEGATIVE (NEGATIVE)
[2024-11-18 20:50] LABS: SQUAMOUS EPITHELIAL CELL,UR NONE SEEN (<= Few)
--- NOTE | 2024-11-18 20:56 | ED Physician Documentation ---
History of Present Illness Stated complaint Stated Complaint: ABD PX Chief complaint Chief Complaint: Abd Pain Additonal information Additional information: HPI from patient. Patient complains of 5-6 days of abdominal cramping pain, most pronounced in the left lower quadrant but radiating across her lower abdomen to the right lower quadrant, as well. No ameliorating factors. Pain is worse with palpation. She also notes burning dysuria. Had episode of nausea with vomiting earlier today which was immediately followed by brief epistaxis. Patient does not take any blood-thinning medication. She has had chills since earlier today, has not measured her temperature at home. Meds/Allgy Home Medications Ambulatory Orders Medication Instructions Recorded Confirmed ascorbic acid (vitamin C) 500 mg 500 mg PO DAILY 08/1911/18/24 chewable tablet (Acerola C) cholecalciferol (vitamin D3) 50 50 mcg PO DAILY 11/18/24 mcg (2,000 unit) capsule ondansetron HCl 4 mg tablet 4 mg PO QDAY 08/30/2410/28 Allergies Allergies Allergy/AdvReac Type Severity Reaction Status Date / Time hydromorphone (From Dilaudid) Allergy Severe ITCHING, Verified 11/18/24 19:52 LIGHTHEADEDNESS acetaminophen (From Percocet) AdvReac Nausea Verified 11/18/24 19:52 oxycodone (From Percocet) AdvReac Nausea Verified 11/18/24 19:52 PFSH Active Problems All Active Problems (Updated 11/19/24 @ 02:31 by Blossom Reynoso RN) Pyelonephritis (Acute) Knee pain, bilateral (Acute) Cardiac arrest (Acute) Syncope (Acute) Hyperlipidemia (Acute) Elevated serum glutamic pyruvic transaminase (SGPT) level (Acute) Cystocele, lateral (Acute) Presence of pessary (Acute) Rib pain on left side (Acute) Unspecified hearing loss, unspecified ear (Acute) Atrophic vaginitis (Acute) Acute bronchitis (Acute) Unspecified blepharitis left lower eyelid (Acute) Acute pain of left knee (Acute) Patellar bursitis of left knee (Acute) Functional nausea (Acute) Edema, unspecified (Acute) Fatigue (Acute) Onychomycosis of toenail (Acute) Thrush (Acute) Pneumonia (Acute) Medical History Medical History (Updated 11/19/24 @ 02:31 by Blossom Reynoso RN) High cholesterol Prolapsed uterus No pertinent past medical history Surgical History Surgical History No pertinent past surgical history Social History Social History (Updated 11/19/24 @ 02:24 by Pat Miller MD) Smoking Status: Never smoker Second hand tobacco smoke exposure: No Do you dip or chew tobacco?: No Do you vape?: No Level: Independent Do you feel safe in your home environment?: Yes History of physical, verbal, emotional, or financial abuse?: No POLST Patient has POLST: No Exam Exam Vital Signs: Vital Signs x48h Pulse Resp BP Pulse Ox 11/19/24 01:45 89 16 153/80 H 95 Constitutional normal general appearance, no apparent distress and alert Respiratory breath sounds equal bilaterally and clear to auscultation bilaterally Cardiovascular normal heart rate noted, regular rhythm noted and no murmur Gastrointestinal abdomen soft to palpation, tender to palpation (moderate TTP across lower abdomen) (moderate), nondistended and normoactive bowel sounds Genitourinary CVA tenderness noted (mild, bilateral) Results Vitals Vitals: Vital Signs - 24 hr 11/18/24 19:52 11/18/24 21:34 11/18/24 22:47 Temperature 36.6 C Temperature Source Temporal Artery Scan Pulse Rate 100 Respiratory Rate 20 Blood Pressure 176/83 H O2 Saturation 93 O2 Source Room air Pain Intensity 9 8 3 11/18/24 23:38 11/18/24 23:54 11/19/24 01:45 Temperature Temperature Source Pulse Rate 88 90 89 Respiratory Rate 16 18 16 Blood Pressure 122/69 158/104 H 153/80 H O2 Saturation 95 94 95 O2 Source Room air Pain Intensity Oxygen O2 Source Room air Labs Labs: Laboratory Tests 11/18/24 11/18/24 20:28 21:32 WBC 12.5 H RBC 3.38 L Hgb 10.1 L Hct 30.8 L MCV 91.1 MCH 29.9 MCHC 32.8 RDW 16.9 H Plt Count 483 H MPV 8.7 Neut # (Auto) 9.4 H Lymph # (Auto) 2.0 Sumner # (Auto) 1.0 Eos # (Auto) 0.0 Baso # (Auto) 0.0 Absolute Nucleated RBC 0.00 Nucleated RBC % 0.0 Sodium 133 L Potassium 3.4 L Chloride 99 L Carbon Dioxide 25 Anion Gap 9.0 BUN 16 Creatinine 0.7 Estimated GFR (MDRD) 81 L Glucose 136 H Calcium 9.8 Total Bilirubin 0.3 AST 22 ALT 16 Alkaline Phosphatase 69 Total Protein 11.4 H Albumin 3.6 Globulin 7.8 H Albumin/Globulin Ratio 0.5 L Lipase 19 Urine Color LIGHT YELLOW Urine Clarity CLOUDY Urine pH 7.5 Ur Specific Dustin 1.015 Urine Protein >=300 H Urine Glucose (UA) NEGATIVE Urine Ketones NEGATIVE Urine Occult Blood LARGE H Urine Nitrite POSITIVE H Urine Bilirubin NEGATIVE Urine Urobilinogen 0.2 (NORMAL) Ur Leukocyte Esterase LARGE H Urine RBC 11-25 H Urine WBC >25 H Ur Squamous Epith Cells NONE SEEN Urine Bacteria Many H Ur Microscopic Review INDICATED Urine Culture Comments INDICATED Rads (name of study) CT A/P with IV contrast: Relevant Findings:: Prelim report reviewed and See rad report PD Medical Decision Making ED course Complexity details: reviewed results, re-evaluated patient, considered differential and d/w patient ED course: Patient is given Toradol early in ED stay and on multiple reevaluations, she is in NAD and reports good analgesia with this intervention. Urinalysis results are C/W UTI +nitrites, 11-25 RBC/hpf, > 25 WBCs/hpf with many bacteria, no squamous cells). She is given 4.5 grams IV zosyn. Mild leukocytosis (WBC 12.5). Mild hyponatremia (sodium 133), minimal hypokalemia (K3.4). Due to the significant TTP on exam, CT A/P with IV contrast is undertaken which demonstrates left perinephric inflammatory changes, moderate-severe left hydroureteronephrosis, left ureteral wall thickening and hyperenhancement. Symptoms, urinalysis results, and the CT findings are suggestive of a left pyelonephritis. I discussed this case with the on-call urologist (Dr. Howe); he says patient is appropriate for admission to [facility], hospitalist service and he can be consulted on this patient. I then [facility] this [facility] and he will admit to [facility], hospitalist service. Discharge Plan Discharge Patient Disposition: ED Place in Observation Condition: Good Clinical Impression: Pyelonephritis Interventions: ED Admission Assessment Last Done: 11/19/24 02:17
[2024-11-18] MEDS: KETOROLAC 30 MG/ML VIAL IVP STA (21:34)
[2024-11-18 21:36] LABS: HCT - HEMATOCRIT 30.8 % (37.0-47.0); HGB - HEMOGLOBIN 10.1 g/dL (12.0-16.0); MEAN PLATELET VOLUME 8.7 fL (7.9-10.8); NRBC ABSOLUTE COUNT (AUTO) 0.00 x10^3/uL; NUCLEATED RED BLOOD CELLS AUTO 0.0 /100WBC; PLT - PLATELET COUNT 483 10^3/uL (130-450); RED CELL DISTRIBUTION WIDTH 16.9 % (12.0-15.0)
[2024-11-18 21:49] LABS: ALT ALANINE AMINOTRANSFERASE 16.0 IU/L (10-60); AST ASPARTATE AMINOTRANSFERASE 22.0 IU/L (10-42); BUN - BLOOD UREA NITROGEN 16.0 mg/dL (6-20); CARBON DIOXIDE - CO2 25.0 mmol/L (21-32); CREATININE 0.7 mg/dL (0.6-1.3); GFR - MDRD 81.0 (>89)
[2024-11-18] MEDS: PIPERACILLIN/TAZOBACTAM 4.5 GM in SODIUM CHLORIDE 0.9% MINIBAG 100 ML IV STA (22:56)
--- NOTE | 2024-11-18 23:09 | CT Report ---
PROCEDURE: CT Abdomen/Pelvis W INDICATIONS: abd. pain, TTP across low abdomen CONTRAST: 100 ML OMNI 300 TECHNIQUE: After the administration of intravenous contrast, a CT scan of the abdomen and pelvis was performed. Images were recorded and evaluated at appropriate window settings. Reformats: coronal and sagittal. For radiation dose reduction, the following was used: automated exposure control, adjustment of mA and/or kV according to patient size. COMPARISON: 08/18/2024 FINDINGS: Image quality: Diagnostic. Lower chest: There is a moderate to large hiatal hernia. Liver: No solid mass. Diffuse fatty liver infiltration can be seen. Gallbladder: Within normal limits. Biliary tree: No intrahepatic or extrahepatic dilation, accounting for age. Spleen: No splenomegaly. Pancreas: No pancreatic ductal dilation. Adrenals: No adrenal nodule. Kidneys and ureters: The left kidney is abnormal, with surrounding inflammatory change. There is moderate to severe left-sided hydroureter and hydronephrosis. The left ureter demonstrates wall thickening and hyperenhancement. No definite distal obstructing stone can be seen. On the right, there are nonobstructing kidney stones seen, measuring up to 6 mm and 1000 Hounsfield units. No right-sided hydronephrosis is seen. Stomach, bowel and peritoneum: No gastric or small bowel dilation. No abnormal wall thickening. No pathologic free fluid. Lymph nodes: No central or retroperitoneal adenopathy. Vessels: No infrarenal aortic aneurysm. Patent portal vein. PELVIS Reproductive organs: No adnexal masses are seen on either side. Bladder: Significant generalized moderate wall thickening is seen. Pelvic lymph nodes: No pelvic adenopathy by size criteria. Bones: No aggressive osseous abnormality. Focal lower lumbar spine degenerative changes are seen. Mild grade 1 L4-L5 anterolisthesis is seen. Other: There is a mild fat-containing right inguinal canal hernia. IMPRESSION: Distinctly abnormal left kidney, with surrounding fatty stranding and moderate to severe right-sided hydroureter and hydronephrosis. The left ureter itself demonstrates wall thickening and hyperenhancement. No distal obstructing stone can be seen. There is also significant lateral wall thickening seen. A significant urinary tract infection is suspected. Additional findings: Moderate to large hiatal hernia Fatty liver infiltration Nonobstructing right-sided kidney stones Fat-containing right inguinal canal hernia Reviewed by: Mike Fairbanks MD on 11/18/2024 10:07 PM PAPA Approved by: Mike Fairbanks MD on 11/18/2024 10:07 PM PAPA Station ID: [id number]
--- OUTSIDE RECORDS SUMMARY | 2024-11-19 02:07 | EXTERNAL MEDICAL SUMMARY RPT | Continuity of Care Document ---
Author Organization [place] Address [address] [place] [id number] Phone Problems date description facility 2024-08-22 09:02 Sepsis, unspecified organism [facility] 2024-08-22 09:02 Other disorders of e lectrolyte and fluid balance, not elsewhere classified [facility] 2024-08-22 09:02 Pneumonia, unspecified organism [facility] 2024-08-22 09:02 Acute respiratory failure with hypoxia [facility] 2024-08-22 09:02 Generalized abdominal pain [facility] 2024-08-23 19:58 Sepsis, unspecified organism [facility] 2024-08-23 19:58 Other disorders of e lectrolyte and fluid balance, not elsewhere classified [facility] 2024-08-23 19:58 Pneumonia, unspecified organism [facility] 2024-08-23 19:58 Acute respiratory failure with hypoxia [facility] 2024-08-23 19:58 Generalized abdominal pain [facility] 2024-08-23 20:00 Sepsis, unspecified organism [facility] 2024-08-23 20:00 Other disorders of e lectrolyte and fluid balance, not elsewhere classified [facility] 2024-08-23 20:00 Pneumonia, unspecified organism [facility] 2024-08-23 20:00 Acute respiratory failure with hypoxia [facility] 2024-08-23 20:00 Generalized abdominal pain [facility] 2024-08-24 05:57 Sepsis, unspecified organism [facility] 2024-08-24 05:57 Other disorders of e lectrolyte and fluid balance, not elsewhere classified [facility] 2024-08-24 05:57 Pneumonia, unspecified organism [facility] 2024-08-24 05:57 Acute respiratory failure with hypoxia [facility] 2024-08-24 05:57 Pain in thoracic spine [facility] 2024-08-24 05:57 Right upper quadrant pain [facility] 2024-08-24 05:57 Generalized abdominal pain [facility] 2024-08-24 05:57 Nausea [facility] 2024-08-24 05:57 Nausea with vomiting, unspecifi ed [facility] 2024-08-24 05:57 Diarrhea, unspecified [facility] 2024-08-24 05:57 Dizziness and giddiness [facility] 2024-08-24 10:59 Nausea with vomiting, unspecifi ed [facility] 2024-08-24 12:24 Sepsis, unspecified organism [facility] 2024-08-24 12:24 Other disorders of e lectrolyte and fluid balance, not elsewhere classified [facility] 2024-08-24 12:24 Pneumonia, unspecified organism [facility] 2024-08-24 12:24 Acute respiratory failure with hypoxia [facility] 2024-08-24 12:24 Generalized abdominal pain [facility] 2024-08-24 16:07 Sepsis, unspecified organism [facility] 2024-08-24 16:07 Other disorders of e lectrolyte and fluid balance, not elsewhere classified [facility] 2024-08-24 16:07 Pneumonia, unspecified organism [facility] 2024-08-24 16:07 Acute respiratory failure with hypoxia [facility] 2024-08-24 16:07 Generalized abdominal pain [facility] 2024-08-25 15:20 Sepsis, unspecified organism [facility] 2024-08-25 15:20 Other disorders of e lectrolyte and fluid balance, not elsewhere classified [facility] 2024-08-25 15:20 Pneumonia, unspecified organism [facility] 2024-08-25 15:20 Acute respiratory failure with hypoxia [facility] 2024-08-25 15:20 Generalized abdominal pain [facility] 2024-08-25 15:20 Nausea [facility] 2024-08-25 15:20 Diarrhea, unspecified [facility] 2024-08-25 15:20 Fever, unspecified [facility] 2024-09-04 09:42 Pneumonia, unspecified organism [facility] 2024-10-04 10:54 Sepsis, unspecified organism [facility] 2024-10-04 10:54 Other disorders of e lectrolyte and fluid balance, not elsewhere classified [facility] 2024-10-04 10:54 Pneumonia, unspecified organism [facility] 2024-10-04 10:54 Acute respiratory failure with hypoxia [facility] 2024-10-04 10:54 Pain in thoracic spine [facility] 2024-10-04 10:54 Right upper quadrant pain [facility] 2024-10-04 10:54 Generalized abdominal pain [facility] 2024-10-04 10:54 Nausea [facility] 2024-10-04 10:54 Nausea with vomiting, unspecifi ed [facility] 2024-10-04 10:54 Diarrhea[facility] unspecified [facility] 2024-10-04 10:54 Dizziness and giddiness [facility] 2024-10-04 10:54 Fever, unspecified [facility] 2024-11-08 10:00 Pneumonia, unspecified organism [facility] Results/Labs test date facility value unit notes Result panel 1 CULTURE, BLOOD #1 2024-08-18 18:32 [facility] (missing) (missing) (missing) CULTURE, BLOOD #1 2024-08-18 18:32 [facility] 08-18-2024/[id number] 832 (missing) (missing) CULTURE, BLOOD #1 2024-08-18 18:32 [facility] 08/18/24 1832 BY [facility]08/18/24 1832 BY [facility] (missing) (missing) CULTURE, BLOOD #1 2024-08-18 18:32 [facility] AERAEROBIC BOTTLE (missing) (missing) CULTURE, BLOOD #1 2024-08-18 18:32 [facility] ANAANAEROBIC BOTTLE (missing) (missing) CULTURE, BLOOD #1 2024-08-18 18:32 [facility] CC.6COLONY COUNT (missing) (missing) CULTURE, BLOOD #1 2024-08-18 18:32 [facility] [id number] BY/DATE/TIME (missing) (missing) CULTURE, BLOOD #1 2024-08-18 18:32 [facility] COLLECTEDCOLLECTION BY/DATE/TIME (missing) (missing) CULTURE, BLOOD #1 2024-08-18 18:32 [facility] GPCPCHGRAM POSITIVE COCCI IN PAIRS/CHAINS (missing) (missing) CULTURE, BLOOD #1 2024-08-18 18:32 [facility] [id number] STAIN (missing) (missing) CULTURE, BLOOD #1 2024-08-18 18:32 [facility] [id number] STAIN (missing) (missing) CULTURE, BLOOD #1 2024-08-18 18:32 [facility] LACLEFT ANTECUBITAL (missing) (missing) CULTURE, BLOOD #1 2024-08-18 18:32 [facility] PICPRESENT IN CULTURE (missing) (missing) CULTURE, BLOOD #1 2024-08-18 18:32 [facility] POS.1POSITIVE BLOOD CULTURE (missing) (missing) CULTURE, BLOOD #1 2024-08-18 18:32 [facility] POSPOSITIVE BLOOD CULTURE (missing) (missing) CULTURE, BLOOD #1 2024-08-18 18:32 [facility] SEE BLOOD CULTURE #2, [id number], FOR SUSCEPTIBILITIES ON (missing) (missing) CULTURE, BLOOD #1 2024-08-18 18:32 [facility] SITE.1COLLECTION SITE (missing) (missing) CULTURE, BLOOD #1 2024-08-18 18:32 [facility] SITECOLLECTION SITE (missing) (missing) CULTURE, BLOOD #1 2024-08-18 18:32 [facility] STREPTOCOCCUS PNEUMONIAE. (missing) (missing) O:STRPNE 2024-08-18 18:32 [facility] STRPNESTREPTOCOCCUS PNEUMONIAESTREPTOCOCCUS PNEUMONIAE (missing) (missing) Result panel 2 CULTURE, BLOOD #2 2024-08-18 18:36 [facility] (missing) (missing) (missing) BENZYLPENICILLIN 2024-08-18 18:36 [facility] <=0.06 (missing) (missing) TIGECYCLINE 2024-08-18 18:36 [facility] <=0.06 (missing) (missing) CEFTRIAXONE 2024-08-18 18:36 [facility] <=0.12 (missing) (missing) ERYTHROMYCIN 2024-08-18 18:36 [facility] <=0.12 (missing) (missing) CLINDAMYCIN 2024-08-18 18:36 [facility] <=0.25 (missing) (missing) TETRACYCLINE 2024-08-18 18:36 [facility] <=0.25 (missing) (missing) TRIMETHOPRIM/SULFAM ETHOXAZOLE 2024-08-18 18:36 [facility] <=10 (missing) (missing) LINEZOLID 2024-08-18 18:36 [facility] <=2 (missing) (missing) MOXIFLOXACIN 2024-08-18 18:36 [facility] 0.12 (missing) (missing) CULTURE, BLOOD #2 2024-08-18 18:36 [facility] 08-18-24/[id number] 6 (missing) (missing) LEVOFLOXACIN 2024-08-18 18:36 [facility] 1 (missing) (missing) CULTURE, BLOOD #2 2024-08-18 18:36 [facility] 08/18/246 BY [id number] BY [facility] (missing) (missing) CULTURE, BLOOD #2 2024-08-18 18:36 [facility] AERAEROBIC BOTTLE (missing) (missing) CULTURE, BLOOD #2 2024-08-18 18:36 [facility] ANAANAEROBIC BOTTLE (missing) (missing) CULTURE, BLOOD #2 2024-08-18 18:36 [facility] Blood culture identification by PCR added (missing) (missing) CULTURE, BLOOD #2 2024-08-18 18:36 [facility] CC.6COLONY COUNT (missing) (missing) CULTURE, BLOOD #2 2024-08-18 18:36 [facility] [id number] BY/DATE/TIME (missing) (missing) CULTURE, BLOOD #2 2024-08-18 18:36 [facility] COLLECTEDCOLLECTION BY/DATE/TIME (missing) (missing) CULTURE, BLOOD #2 2024-08-18 18:36 [facility] GPCPCHGRAM POSITIVE COCCI IN PAIRS/CHAINS (missing) (missing) CULTURE, BLOOD #2 2024-08-18 18:36 [facility] [id number] STAIN (missing) (missing) CULTURE, BLOOD #2 2024-08-18 18:36 [facility] [id number] STAIN (missing) (missing) CULTURE, BLOOD #2 2024-08-18 18:36 [facility] PICPRESENT IN CULTURE (missing) (missing) CULTURE, BLOOD #2 2024-08-18 18:36 [facility] POS.1POSITIVE BLOOD CULTURE (missing) (missing) CULTURE, BLOOD #2 2024-08-18 18:36 [facility] POSPOSITIVE BLOOD CULTURE (missing) (missing) CULTURE, BLOOD #2 2024-08-18 18:36 [facility] RACRIGHT ANTECUBITAL (missing) (missing) CULTURE, BLOOD #2 2024-08-18 18:36 [facility] SITE.1COLLECTION SITE (missing) (missing) CULTURE, BLOOD #2 2024-08-18 18:36 [facility] SITECOLLECTION SITE (missing) (missing) O:STRPNE 2024-08-18 18:36 [facility] STRPNESTREPTOCOCCUS PNEUMONIAESTREPTOCOCCUS PNEUMONIAE (missing) (missing) Result panel 3 BASOPHILS # (AUTO) 2024-08-21 04:25 [facility] 0.0 10 3/ul (missing) NRBC ABSOLUTE COUNT (AUTO) 2024-08-21 04:25 [facility] 0.02 x10 3/ul (missing) EOSINOPHILS # (AUTO) 2024-08-21 04:25 [facility] 0.1 10 3/ul (missing) NUCLEATED RED BLOOD CELLS AUTO 2024-08-21 04:25 [facility] 0.2 /100wbc (missing) CREATININE 2024-08-21 04:25 [facility] 0.5 mg/dl As of September 2022 testing method has changed, this may include reference ranges. MONOCYTES # (AUTO) 2024-08-21 04:25 [facility] 0.9 10 3/ul (missing) MAGNESIUM 2024-08-21 04:25 [facility] 1.6 mg/dl As of September 2022 testing method has changed, this may include reference ranges. LYMPHOCYTES # (AUTO) 2024-08-21 04:25 [facility] 1.7 10 3/ul (missing) MEAN PLATELET VOLUME 2024-08-21 04:25 [facility] 10.1 fl (missing) CHLORIDE 2024-08-21 04:25 [facility] 103 mmol/l As of September 2022 testing method has changed, this may include reference ranges. GFR - MDRD 2024-08-21 04:25 [email or web address] 119 (honey richards) Social History date description facility
--- NOTE | 2024-11-19 02:15 | HISTORY & PHYSICAL EXAMINATION ---
Chief Complaint Chief Complaint Chief Complaint: Abdominal pain History of Present Illness History of Present Illness HPI Comment/Other: 79 y old female with no significant PMH came with c/o abdominal pain for 5 days. C/O fever, nausea, vomiting, frequency of urination Denies JEFFERY, chest pain, SOB, Diarrhea, constipation CT abdomnen and pelvis showed pyelonephritis and left sides hydronephrosis and hydroureter Labs showed leukocytosis and UTI In ER, pt was given given IVF and Zosyn As per ER physician, he consulted Urologist agricultural consultant , ( Dr Howe) who recommended to keep patient NPO Pt is admitted due to acute pyelonephritis and left hydroureter nad hydronephrosis Review of Systems Status of ROS: 10 or more systems reviewed and unremarkable except as noted in history and below PFSH Active Problems All Active Problems (Updated 11/18/24 @ 23:55 by Alireza Polanco MD) Pyelonephritis (Acute) Knee pain, bilateral (Acute) Cardiac arrest (Acute) Syncope (Acute) Hyperlipidemia (Acute) Elevated serum glutamic pyruvic transaminase (SGPT) level (Acute) Cystocele, lateral (Acute) Presence of pessary (Acute) Rib pain on left side (Acute) Unspecified hearing loss, unspecified ear (Acute) Atrophic vaginitis (Acute) Acute bronchitis (Acute) Unspecified blepharitis left lower eyelid (Acute) Acute pain of left knee (Acute) Patellar bursitis of left knee (Acute) Functional nausea (Acute) Edema, unspecified (Acute) Fatigue (Acute) Onychomycosis of toenail (Acute) Thrush (Acute) Pneumonia (Acute) Medical History Medical History (Updated 11/18/24 @ 23:55 by Alireza Polanco MD) Prolapsed uterus No pertinent past medical history Surgical History Surgical History No pertinent past surgical history Social History Social History Smoking Status: Never smoker Second hand tobacco smoke exposure: No Do you dip or chew tobacco?: No Do you vape?: No Level: Independent Do you feel safe in your home environment?: Yes History of physical, verbal, emotional, or financial abuse?: No POLST Patient has POLST: No Meds/Allgy Home Medications Ambulatory Orders Medication Instructions Recorded Confirmed ascorbic acid (vitamin C) 500 mg 500 mg PO DAILY 08/1911/18/24 chewable tablet (Acerola C) cholecalciferol (vitamin D3) 50 50 mcg PO DAILY 11/18/24 mcg (2,000 unit) capsule ondansetron HCl 4 mg tablet 4 mg PO QDAY 08/30/2410/28 Allergies Allergies Allergy/AdvReac Type Severity Reaction Status Date / Time hydromorphone (From Dilaudid) Allergy Severe ITCHING, Verified 11/18/24 19:52 LIGHTHEADEDNESS acetaminophen (From Percocet) AdvReac Nausea Verified 11/18/24 19:52 oxycodone (From Percocet) AdvReac Nausea Verified 11/18/24 19:52 Exam Exam Vital Signs: Vital Signs x48h Temp Pulse Resp BP Pulse Ox 11/19/24 01:45 89 16 153/80 H 95 11/18/24 23:54 90 18 158/104 H 94 11/18/24 23:38 88 16 122/69 95 11/18/24 19:52 36.6 C 100 20 176/83 H 93 Constitutional normal general appearance [facility] normocephalic Eyes PERRL Chest inspection of chest normal Respiratory breath sounds equal bilaterally Cardiovascular normal heart rate noted Gastrointestinal abdomen normal to inspection Extremities normal to inspection Neurology no focal motor deficit noted Skin no rash Conclusion/Plan Problem List (1) Pyelonephritis: Plan: A: Acute pyelonephritis Left hydroureter and hydronephrosis Abdominal pain Leukocytosis Anemia Plan: Admit to med surg with tele Follow cx Start NS @ 100 cc/h Start ceftriaxone 1 gram daily NPO. As per ER physician, he consulted with urologist agricultural consultant ( Dr Howe) DVT prophylaxic: SCD Full code Pt is admitted as inpatient as more than 2 midnight stay is expected Lab Results 11/18/24 21:32 11/18/24 21:32
[2024-11-19] MEDS ORDERED: SODIUM CHLORIDE FLUSH 0.9% 10 ML SYRINGE IVP PRN (02:24)
[2024-11-19] MEDS ORDERED: ONDANSETRON 4 MG/2 ML VIAL IVP PRN (02:24)
[2024-11-19] MEDS ORDERED: ACETAMINOPHEN 325 MG TABLET PO PRN (02:24)
[2024-11-19] MEDS: SODIUM CHLORIDE 0.9% 1,000 ML IV SCH (02:59)
[2024-11-19] MEDS: cefTRIAXone 1 GM in SODIUM CHLORIDE 0.9% MINIBAG 100 ML IV SCH (08:25)
[2024-11-19] MEDS: SODIUM CHLORIDE FLUSH 0.9% 10 ML SYRINGE IVP SCH (08:26)
--- NOTE | 2024-11-19 09:32 | PROVIDER PROGRESS NOTE ---
Current Medications Current Medications Current Medications: Current Medications Generic Name Dose Route Start Last Admin Trade Name Jason PRN Reason Stop Dose Admin Acetaminophen 650 mg 11/19/24 02:24 Acetaminophen 325 Mg Tablet PO Q4HR PRN Pain 1 to 4, or Fever Ceftriaxone Sodium 1 gm/ 100 mls @ 200 mls/hr 11/19/24 09:00 11/19/24 08:25 Sodium Chloride IV 200 mls/hr DAILY CHRISTIN Administration Sodium Chloride 1,000 mls @ 100 mls/hr 11/19/24 03:00 11/19/24 08:29 Normal Saline 0.9% IV 0 mls/hr .Q10H CHRISTIN Infusion Ondansetron HCl 4 mg 11/19/24 02:24 Ondansetron 4 Mg/2 Ml Vial IVP Q6HR PRN Nausea / Vomiting Sodium Chloride 10 ml 11/19/24 02:24 Sodium Chloride Flush 0.9% 10 Ml Syringe IVP PRN PRN NEEDED PER PROVIDER ORDERS Sodium Chloride 10 ml 11/19/24 09:00 11/19/24 08:26 Sodium Chloride Flush 0.9% 10 Ml Syringe IVP 10 ml 0100,0900,1700 CHRISTIN Administration Objective Vital Signs/Intake & Output Vital Signs: Vital Signs x48h Temp Pulse Pulse Resp BP BP Pulse Ox 11/19/24 07:30 98.6 F 95 16 133/69 H 95 11/19/24 05:56 98.6 F 91 20 133/59 H 97 11/19/24 03:00 98.6 F 90 22 137/71 H 98 11/19/24 02:17 97.2 F L 91 18 146/80 H 96 11/19/24 01:45 89 16 153/80 H 95 Intake & Output: Intake & Output 11/16/24 11/17/24 11/18/24 11/19/24 23:59 23:59 23:59 23:59 Intake Total 650 / 650 Balance 650 / 650 Weight (kg) 49.9 kg 63.5 kg Lab Results 11/18/24 21:32 11/18/24 21:32 Other Labs: Lab Results x24hrs 11/18/24 11/18/24 Range/Units 21:32 20:28 WBC 12.5 H (4.8-10.8) x10^3/uL RBC 3.38 L (4.20-5.40) 10^6/uL Hgb 10.1 L (12.0-16.0) g/dL Hct 30.8 L (37.0-47.0) % MCV 91.1 (81.0-99.0) fL MCH 29.9 (27.0-31.0) pg MCHC 32.8 (32.0-36.0) g/dL RDW 16.9 H (12.0-15.0) % Plt Count 483 H (130-450) 10^3/uL MPV 8.7 (7.9-10.8) fL Neut # (Auto) 9.4 H (1.5-6.6) 10^3/uL Lymph # (Auto) 2.0 (1.5-3.5) 10^3/uL [place] # (Auto) 1.0 (0.0-1.0) 10^3/uL Eos # (Auto) 0.0 (0.0-0.7) 10^3/uL Baso # (Auto) 0.0 (0.0-0.1) 10^3/uL Absolute Nucleated RBC 0.00 x10^3/uL Nucleated RBC % 0.0 /100WBC Sodium 133 L (135-145) mmol/L Potassium 3.4 L (3.5-4.5) mmol/L Chloride 99 L (101-111) mmol/L Carbon Dioxide 25 (21-32) mmol/L Anion Gap 9.0 (6-13) BUN 16 (6-20) mg/dL Creatinine 0.7 (0.6-1.3) mg/dL Estimated GFR (MDRD) 81 L (>89) Glucose 136 H (74-104) mg/dL Calcium 9.8 (8.5-10.3) mg/dL Total Bilirubin 0.3 (0.2-1.0) mg/dL AST 22 (10-42) IU/L ALT 16 (10-60) IU/L Alkaline Phosphatase 69 (42-121) IU/L Total Protein 11.4 H (6.4-8.9) g/dL Albumin 3.6 (3.2-5.5) g/dL Globulin 7.8 H (2.1-4.2) g/dL Albumin/Globulin Ratio 0.5 L (1.0-2.2) Lipase 19 (11-82) U/L Urine Color LIGHT YELLOW Urine Clarity CLOUDY (CLEAR) Urine pH 7.5 (5.0-7.5) PH Ur Specific [place] 1.015 (1.002-1.030) Urine Protein >=300 H (NEGATIVE) mg/dL Urine Glucose (UA) NEGATIVE (NEGATIVE) mg/dL Urine Ketones NEGATIVE (NEGATIVE) mg/dL Urine Occult Blood LARGE H (NEGATIVE) Urine Nitrite POSITIVE H (NEGATIVE) Urine Bilirubin NEGATIVE (NEGATIVE) Urine Urobilinogen 0.2 (NORMAL) (NORMAL) E.U./dL Ur Leukocyte Esterase LARGE H (NEGATIVE) Urine RBC 11-25 H (0-5) /HPF Urine WBC >25 H (0-5) /HPF Ur Squamous Epith Cells NONE SEEN (<= Few) Urine Bacteria Many H (None Seen) /HPF Ur Microscopic Review INDICATED Urine Culture Comments INDICATED Assessment/Plan Problem List (1) Pyelonephritis:
[2024-11-19] MEDS: POTASSIUM CHLORIDE 20 MEQ TABLET PO ONE (11:01)
[2024-11-19 11:35] LABS: HCT - HEMATOCRIT 26.4 % (37.0-47.0); HGB - HEMOGLOBIN 8.4 g/dL (12.0-16.0); MEAN PLATELET VOLUME 9.2 fL (7.9-10.8); PLT - PLATELET COUNT 449.0 10^3/uL (130-450); RED CELL DISTRIBUTION WIDTH 17.1 % (12.0-15.0)
--- NOTE | 2024-11-19 11:36 | Discharge Summary ---
"Discharge Summary Admit Date: 11/19/24 Discharge Date: 11/19/24 Discharging Provider: Dr. Nai Dunaway Primary Care Provider: Amairani Bland Code Status: Attempt Resuscitation Discharge Facility Name: Home DIAGNOSES Discharge Diagnoses with Status of Each Condition: Acute pyelonephritis, left hydroureterreceived 1 day of IV antibiotics. White count stable. Continue 6 more days of oral Bactrim. Spoke with urologistokay for discharge with follow-up in 3 months for repeat imaging. Urine cultures growing E. coli, susceptibilities are still pending. Leukocytosisfollow-up outpatient with primary care provider. HPI History of Present Illness: Per Pat Miller: 79 y old female with no significant PMH came with c/o abdominal pain for 5 days. C/O fever, nausea, vomiting, frequency of urination Denies JEFFERY, chest pain, SOB, Diarrhea, constipation CT abdomnen and pelvis showed pyelonephritis and left sides hydronephrosis and hydroureter Labs showed leukocytosis and UTI In ER, pt was given given IVF and Zosyn As per ER physician, he consulted Urologist salesperson parts , ( Dr Howe) who recommended to keep patient NPO Pt is admitted due to acute pyelonephritis and left hydroureter nad hydronephrosis CONSULTS | PROCEDURES Consultations: Urology Procedures: CT abdomen/pelvis HOSPITAL COURSE Hospital Course: Patient is a 79-year-old female with no real past medical history who presented with dysuria, suprapubic pain, fevers and chills at home. UA was positive for infection. Urine cultures growing E. coli. Abdomen/pelvis CT did show left kidney with fat stranding and right sided hydronephrosis and hydroureter. Urology was consultedthey will follow-up in the outpatientshe is going to require repeat imaging in 3 months. He recommended discharge home on oral Bactrim. Patient is feeling much better, no fevers, no chills, tolerating p.o. intake. She has no pain. She was deemed suitable for discharge with close follow-up in outpatient setting with both her PCP as well as a urologist. ALLERGIES Allergies Allergy/AdvReac Type Severity Reaction Status Date / Time hydromorphone (From Dilaudid) Allergy Severe ITCHING, Verified 11/18/24 19:52 LIGHTHEADEDNESS acetaminophen (From Percocet) AdvReac Nausea Verified 11/18/24 19:52 oxycodone (From Percocet) AdvReac Nausea Verified 11/18/24 19:52 MEDICATIONS Ambulatory Orders Medication Instructions Recorded Confirmed ascorbic acid (vitamin C) 500 mg 500 mg PO DAILY 08/1911/18/24 chewable tablet (Acerola C) cholecalciferol (vitamin D3) 50 50 mcg PO DAILY 11/18/24 mcg (2,000 unit) capsule ondansetron HCl 4 mg tablet 4 mg PO QDAY 08/30/2410/28 sulfamethoxazole 800 1 tab PO BID 7 days #14 tabs 11/19/24 mg-trimethoprim 160 mg tablet (Bactrim DS) PHYSICAL EXAM AT DISCHARGE Vital Signs: Vital Signs x48h Temp Pulse Resp BP Pulse Ox 11/19/24 12:45 98.2 F 92 20 103/54 L 96 11/19/24 07:30 98.6 F 95 16 133/69 H 95 11/19/24 05:56 98.6 F 91 20 133/59 H 97 General Appearance: positive No acute distress and Alert; negative Anxious Eyes Bilateral: positive Normal inspection, PERRL and EOMI ENT: positive ENT inspection nml, Pharynx nml and No signs of dehydration Neck: positive Nml inspection, Thyroid nml, No JVD and Trachea midline Respiratory: positive Chest non-tender, No respiratory distress and Breath sounds nml; negative Wheezes, Rales or Rhonchi Cardiovascular: positive Regular rate & rhythm, No murmur and No gallop Peripheral Pulses: positive 2+ Abdomen: positive Non-tender, No organomegaly, Nml bowel sounds and No distention Rectal: positive Non-tender Back: positive Nml inspection; negative CVA tenderness (R) or CVA tenderness (L) Skin: positive Color nml, No rash, Warm and Dry Extremities: positive Non-tender, Full ROM, Nml appearance and No pedal edema Neurologic/Psychiatric: positive Oriented x3, Sensation nml and Mood/affect nml LABS 11/19/24 11:23 11/18/24 21:32 DIAGNOSTIC IMAGING Diagnostic Imaging Results: Final report reviewed FOLLOW UP Follow Up: Follow up PCP. Follow up urology. TIME SPENT Time Spent in Discharge (Minutes): 35 Discharge Plan Discharge Patient Disposition: Home, Self Care Condition: Good Prescriptions: New sulfamethoxazole-trimethoprim [Bactrim DS] 800-160 mg tablet 1 tab PO BID 7 Days Qty: 14 0RF Continued ondansetron HCl 4 mg tablet 4 mg PO QDAY cholecalciferol (vitamin D3) 50 mcg (2,000 unit) capsule 50 mcg PO DAILY ascorbic acid (vitamin C) [Acerola C] 500 mg tablet,chewable 500 mg PO DAILY Activity Restrictions: Activity as Tolerated Diet: Regular Health Concerns: You came in because you were having some burning when you were peeing, as well as some tenderness in your suprapubic region. You were found to have a urinary tract infection as well as an infection of your kidneys. You received IV antibiotics for this. You will complete a weeks worth of antibiotics via pill form at home. Your imaging showed this infection. The urologist was consulted for some dilation of your ureter. He would like to repeat imaging in 3 months, and have you follow-up with him. I have attached his contact information for you to make a follow-up appointment with him. If your fever returns, or if any of your urinary symptoms return, please feel free to return to the ER. We are glad you are feeling better, thanks for allowing us to take care of you. Print Language: Swedish Patient Instructions: ED Kidney Infection (Adult Female) Stand Alone Forms: PCP List Follow-up Care: Chandrakant Howe MD [Provider Admit Priv/Credential, Urology] - 6 Weeks Amairani Bland PA-C [Primary Care Provider, Family Practice]"
[2024-11-19 12:47] VITALS: TEMP 98.2
[2024-11-19 15:07] VITALS: BP 110/56; O2SAT 95
--- NOTE | 2024-11-20 07:32 | CONSULTATION NOTE ---
Chief Complaint Chief Complaint Chief Complaint: abdominal pain History of Present Illness History of Present Illness HPI Comment/Other: 79yo F with hx of kidney stones presented with LLQ pain. UA concerning for infection. CT scan showed left pyelonephritis without obstruction, moderate hydroureter and cystitis seen. She was admitted for monitoring. Her pain has improved. She has some small right non obstructing stones. She feels well and is afebrile PFSH Active Problems All Active Problems (Updated 11/20/24 @ 00:01 by ) Pyelonephritis (Acute) Knee pain, bilateral (Acute) Cardiac arrest (Acute) Syncope (Acute) Hyperlipidemia (Acute) Elevated serum glutamic pyruvic transaminase (SGPT) level (Acute) Cystocele, lateral (Acute) Presence of pessary (Acute) Rib pain on left side (Acute) Unspecified hearing loss, unspecified ear (Acute) Atrophic vaginitis (Acute) Acute bronchitis (Acute) Unspecified blepharitis left lower eyelid (Acute) Acute pain of left knee (Acute) Patellar bursitis of left knee (Acute) Functional nausea (Acute) Edema, unspecified (Acute) Fatigue (Acute) Onychomycosis of toenail (Acute) Thrush (Acute) Pneumonia (Acute) Medical History Medical History (Updated 11/20/24 @ 00:01 by ) High cholesterol Prolapsed uterus No pertinent past medical history Surgical History Surgical History No pertinent past surgical history Social History Social History (Updated 11/19/24 @ 02:24 by Pat Miller MD) Smoking Status: Never smoker Second hand tobacco smoke exposure: No Do you dip or chew tobacco?: No Do you vape?: No Level: Independent Do you feel safe in your home environment?: Yes History of physical, verbal, emotional, or financial abuse?: No POLST Patient has POLST: No Meds/Allgy Home Medications Ambulatory Orders Medication Instructions Recorded Confirmed ascorbic acid (vitamin C) 500 mg 500 mg PO DAILY 08/1911/18/24 chewable tablet (Acerola C) cholecalciferol (vitamin D3) 50 50 mcg PO DAILY 11/18/24 mcg (2,000 unit) capsule ondansetron HCl 4 mg tablet 4 mg PO QDAY 08/30/2410/28 sulfamethoxazole 800 1 tab PO BID 7 days #14 tabs 11/19/24 mg-trimethoprim 160 mg tablet (Bactrim DS) Allergies Allergies Allergy/AdvReac Type Severity Reaction Status Date / Time hydromorphone (From Dilaudid) Allergy Severe ITCHING, Verified 11/18/24 19:52 LIGHTHEADEDNESS acetaminophen (From Percocet) AdvReac Nausea Verified 11/18/24 19:52 oxycodone (From Percocet) AdvReac Nausea Verified 11/18/24 19:52 Results Lab Results Lab results reviewed: Yes 11/19/24 11:23 11/18/24 21:32 Other Lab Results: Lab Results x24hrs 11/18/24 11/18/24 Range/Units 21:32 20:28 WBC 12.5 H (4.8-10.8) x10^3/uL RBC 3.38 L (4.20-5.40) 10^6/uL Hgb 10.1 L (12.0-16.0) g/dL Hct 30.8 L (37.0-47.0) % MCV 91.1 (81.0-99.0) fL MCH 29.9 (27.0-31.0) pg MCHC 32.8 (32.0-36.0) g/dL RDW 16.9 H (12.0-15.0) % Plt Count 483 H (130-450) 10^3/uL MPV 8.7 (7.9-10.8) fL Neut # (Auto) 9.4 H (1.5-6.6) 10^3/uL Lymph # (Auto) 2.0 (1.5-3.5) 10^3/uL [place] # (Auto) 1.0 (0.0-1.0) 10^3/uL Eos # (Auto) 0.0 (0.0-0.7) 10^3/uL Baso # (Auto) 0.0 (0.0-0.1) 10^3/uL Absolute Nucleated RBC 0.00 x10^3/uL Nucleated RBC % 0.0 /100WBC Sodium 133 L (135-145) mmol/L Potassium 3.4 L (3.5-4.5) mmol/L Chloride 99 L (101-111) mmol/L Carbon Dioxide 25 (21-32) mmol/L Anion Gap 9.0 (6-13) BUN 16 (6-20) mg/dL Creatinine 0.7 (0.6-1.3) mg/dL Estimated GFR (MDRD) 81 L (>89) Glucose 136 H (74-104) mg/dL Calcium 9.8 (8.5-10.3) mg/dL Total Bilirubin 0.3 (0.2-1.0) mg/dL AST 22 (10-42) IU/L ALT 16 (10-60) IU/L Alkaline Phosphatase 69 (42-121) IU/L Total Protein 11.4 H (6.4-8.9) g/dL Albumin 3.6 (3.2-5.5) g/dL Globulin 7.8 H (2.1-4.2) g/dL Albumin/Globulin Ratio 0.5 L (1.0-2.2) Lipase 19 (11-82) U/L Urine Color LIGHT YELLOW Urine Clarity CLOUDY (CLEAR) Urine pH 7.5 (5.0-7.5) PH Ur Specific [place] 1.015 (1.002-1.030) Urine Protein >=300 H (NEGATIVE) mg/dL Urine Glucose (UA) NEGATIVE (NEGATIVE) mg/dL Urine Ketones NEGATIVE (NEGATIVE) mg/dL Urine Occult Blood LARGE H (NEGATIVE) Urine Nitrite POSITIVE H (NEGATIVE) Urine Bilirubin NEGATIVE (NEGATIVE) Urine Urobilinogen 0.2 (NORMAL) (NORMAL) E.U./dL Ur Leukocyte Esterase LARGE H (NEGATIVE) Urine RBC 11-25 H (0-5) /HPF Urine WBC >25 H (0-5) /HPF Ur Squamous Epith Cells NONE SEEN (<= Few) Urine Bacteria Many H (None Seen) /HPF Ur Microscopic Review INDICATED Urine Culture Comments INDICATED Diagnostic Imaging Results Diagnostic Imaging Results: positive Read independently Exam Exam Vital Signs: Vital Signs x48h Temp Pulse Pulse Resp BP BP Pulse Ox 11/19/24 05:56 37.0 C 91 20 133/59 H 97 11/19/24 03:00 37.0 C 90 22 137/71 H 98 11/19/24 02:17 36.2 C L 91 18 146/80 H 96 11/19/24 01:45 89 16 153/80 H 95 11/18/24 23:54 90 18 158/104 H 94 11/18/24 23:38 88 16 122/69 95 NAD soft ntnd Conclusion/Plan Problem List (1) Pyelonephritis: Plan: -ok for discharge -7 days bactrim -rtc [address] Howe and will obtain CT IVP at that time to show improvement in left hydroureter and atypia Lab Results Lab results reviewed: Yes 11/19/24 11:23 11/18/24 21:32 Diagnostic Imaging Results Diagnostic Imaging Results: positive Read independently
== END 2024-11-19 15:07 | disposition home or self-care (01) ==
LOC: MS2 19:50 → ED 19:50 → MS2 11-19 02:00
PROVIDERS: ADMIT Internal Medicine; ATTEND Internal Medicine